=== PATIENT | female | born 2000 | race Caucasian/White ===

== ENCOUNTER 2024-10-13 15:17 | Outpatient (AMB) | payer OTHER, SELFPAY ==
--- NOTE | 2024-10-13 15:20 | MHC.PC.OV ---
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 Intake Note: patient here for a new patient visit [place] Worker Required: No Is last menstrual period known: No (depo) Post menopausal: No Patient : No Allergies amoxicillin Allergy (Intermediate, Verified 10/13/24 15:36) Rash cat dander Allergy (Intermediate, Verified 10/13/24 15:36) Itching dog dander Allergy (Intermediate, Verified 10/13/24 15:36) Rash Medication List - Last Reviewed 10/13/24 by iLdia Rios MA medroxyprogesterone 150 mg IM [id number] nitrofurantoin macrocrystal 50 mg PO DAILY Tobacco use date assessed: 10/13/24 Dental Screening Dental Screen Date: 10/13/24 Did you have a dental visit in the last 12 months?: Yes Did you have a dental problem in the last 6 months where you did not have access to dental care?: No Was dental information given to patient?: Patient has dentist HPI HPI Comments History of Present Illness Details 24 y/o F with recurrent UTI, HX of frequent concussions, migraine headaches with aura Sugery: Sandy tooth removal Social: Teacher, 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 Health Maintenance: Tdap 2019 Pap due Specialist: CONTRACTS SPECIALIST [facility] History of Present Illness - The patient is a 24-year-old female presenting to est care and for a wellness exam - Previous PCP: Huma Colon records - with concerns of recurrent headaches, sinus symptoms, and fatigue. - Headaches are frequent monthly, treated with OTC analgesics, with associated aura symptoms. - Recurrent UTIs are under ongoing daily antibiotic prophylaxis. - Associated TMJ disorder presents with facial pain. - Sinus-related symptoms include congestion and purulence, started > 1 week ago. Worse since onset. - Dizziness can occur ; feels like blood sugar drops; has to eat. - Notable fatigue with standard meals, hunger-related dizziness. - Neck mass noted, right side, size fluctuates without prior evaluations. Tender to touch Past Surgical History - Extraction of wisdom teeth (planned) Family History - Mother has a history of asthma and hypertension. - Father is alive, limited medical history known. - No known familial cancer. Social History - Employment: Works as a teacher. - Housing: Resides with her mother and feels safe. - Family: No children, has two sisters and two brothers who are healthy. - Preventive Health: Up-to-date tetanus vaccination with the last dose in 2019. - Lifestyle: Reports potential stress impact from work environment, contributing to headaches. Health Maintenance - Received tetanus vaccination in 2019. - Regular Pap smears for women's health maintenance with no history of abnormal results. - Complained about frequent dizziness and fatigue, labs were ordered to further investigate thyroid and vitamin levels. - Sinus infection to be treated with antibiotics. - Initiated preventive therapy for headaches including magnesium and vitamin B supplementation. Review of Systems - Constitutional: Reports fatigue, dizziness associated with hunger. - HEENT: Reports sinus congestion, drainage, and pressure. Denies using corrective lenses. - Eyes: Denies visual loss or use of glasses, but reports visual abnormalities preceding migraines. - Cardiovascular: Denies significant family cardiac history. - Respiratory: Denies respiratory symptoms. - Gastrointestinal: Denies significant pain, mentions burning upon swallowing. - Genitourinary: Reports recurrent UTIs. Patient reports recurrent UTIs, managed with low-dose antibiotics prescribed by urogynecology. - Musculoskeletal: Reports history of TMJ pain. - Neurological: Reports headaches, no seizures reported. Reports migraines occurring 2-3 times per month, associated with TMJ and past concussions. - Endocrine: Occasional symptoms suggestive of hypoglycemia. - Psychiatric: Denies anxiety or depression. - Skin: Noted a mole on the back that has changed and causes pain; referral to dermatology recommended. Physical Exam General: Well developed, well nourished, in no acute distress. Appears stated age. Head: Normocephalic, atraumatic. Eyes: Pupils are equal, round and reactive to light and accommodation. Conjunctivae are clear. Vision grossly normal. Ears: TMs clear R, mild erythema on L, EACS WNL. Nose: Patent, purulent discharge. Frontal and maxillary sinus tenderness bilat worse on L Neck: Supple, + thyromegaly. Painful palpable lump along posterior cervical chain Breast: Edu on SBE Lungs: Clear to auscultation bilaterally. No rales, rhonchi or wheeze noted. Good air flow in all hurtado. Heart: Regular rate and rhythm. No murmurs, click, rubs or gallops are noted. Abdomen: Bowel sounds present in all quadrants. The abdomen is soft, nontender, with no masses or organomegaly noted. No hernias are noted. : Deferred. Reviewed recommendations for routine CONTRACTS SPECIALIST. Pulses: Peripheral pulses are equal and palpable bilaterally. Extremities: No clubbing, cyanosis nor edema is noted. Neurologic: Gait and station normal. Cranial Nerves 2-12 intact. Motor strength grossly symmetrical and intact. No sensory loss. Balance normal. Skin: No rashes, ulcers, or lesions noted. Turgor is good. Skin color is good. Hair and nails are without abnormalities. Mole L upper back Psych: Normal eye contact, affect and mood appropriate, and normal interactions. Patient is alert and appropriate to context. Screening for anxiety and depression negative. Results Pending Discussion Notes I discussed the patient's various symptoms, notably her recurrent headaches and potential migraine-associated symptoms. Education regarding the administration and expected effects of sumatriptan was provided, focusing on its use during headache onset and potential side effects such as flushing and tiredness. Preventive measures for her headaches were initiated with recommendations to take magnesium and vitamin B6 nightly. Regarding her sinus symptoms, we explored the likelihood of a bacterial process and decided on antibiotic treatment. I recommended an ultrasound of the neck to assess the variable mass more conclusively. The management of recurrent UTIs continues with prophylactic antibiotics. Future follow-up and interventions will be guided by lab and ultrasound results, necessitating timely follow-up upon result receipt. Assessment and Plan 1. Recurrent Urinary Tract Infections - Maintain antibiotic prophylaxis. 2. Sinusitis - Start antibiotics; monitor symptoms. 3. Headaches/Migraine - Sumatriptan and preventive supplements. 4. TMJ Disorder - Manage with NSAIDs, heat. 5. Neck Mass/thyromegaly - Ultrasound scheduled. 6. Fatigue - Lab work ordered. Derm referral for mole. Routine labs. Patient Instructions - Take sumatriptan at first sign of headache. - Continue daily preventive vitamins. - Monitor sinus symptoms; complete the full course of antibiotics. - Stay well-hydrated and maintain regular meals; seek care if dizziness worsens. - Upon receiving an ultrasound call, attend the appointment for further neck assessment. - Expect follow-up regarding lab results and initiate contact for any worsening in the interim. - RTO 1 YEAR FOR CPE, SOONER PRN. MY OFFICE WILL ARRANGE FU FOR US RESULTS ONCE BACK Consent Patient was informed and verbally consented to the use of an ambient scribe for clinic note documentation during this visit. An additional 45 minutes was spent addressing the problem(s) noted at todays visit. This includes time spent before the visit reviewing the chart, time spent during the visit, and time spent after the visit on documentation reviewing laboratory results, diagnostic imaging, medications, performing a medically necessary evaluation, counseling on diagnoses, care coordination, ordering appropriate tests, ordering appropriate medications, review of tests performed by other providers, reporting test results with the patient, communication with other healthcare providers. PFSH Family History (Updated 10/13/24 @ 15:34 by Lidia Rios MA) Mother Asthma High blood pressure Social History (Updated 10/13/24 @ 15:29 by Lidia Rios MA) Housing: House Patient Tobacco Use Status: Never used Tobacco e-Cigarette/Vaping Use: Never Used Second Hand Smoke Exposure: No service: No Current occupational status: employed Current occupation: preK teacher Current occupational exposures/hazards: No Cognitive needs: No Hearing needs: No Vision needs: No Questionnaire PHQ-9 Over the last 2 weeks, how often have you been bothered by any of the following problems? 1. Little interest or pleasure in doing things: not at all 2. Feeling down, depressed, or hopeless: not at all 3. Trouble falling or staying asleep, or sleeping too much: not at all 4. Feeling tired or having little energy: not at all 5. Poor appetite or overeating: not at all 6. Feeling bad about yourself - or that you are a failure or have let yourself or your family down: not at all 7. Trouble concentrating on things, such as reading the newspaper or watching television: not at all 8. Moving or speaking so slowly that other people could have noticed. Or the opposite - being so fidgety or restless that you have been moving around a lot more than usual: not at all 9. Thoughts that you would be better off or of hurting yourself in some way: not at all Total score: 0 Depression Screening Interpretation: Negative Depression Screening Done: Yes 21968 - PHQ-9 Billing: Yes Source: Developed by Drs. Dominik Duvall, Kathia Rosenberg, Klaus Barnard and colleagues, with an educational kyle from [employer]. Thrive Questionnaire Date Thrive assessed: 10/13/24 I am a: Patient What is your living situation today?: I have a steady place to live Within the past 12 months, did the food you bought not last and you didn't have the money to get more?: Never true Within the past 12 months, did you worry whether your food would run out before you got money to buy more?: Never true Do you have trouble paying for medicines?: No Do you have trouble getting transportation to medical appointments?: No Do you have trouble paying your heating and electricity bill?: No Do you have trouble taking care of your child, family member or friend?: No Do you have trouble with day-to-day activities such as bathing, preparing meals, shopping, managing finances, etc.?: No Are you currently unemployed and looking for a job?: No Are you interested in more education?: Yes Please select the resources that you would like help with: None Currently or been in a relationship where the following occur: No concerns reported THRIVE Score: 0 AUDIT C Alcohol Use Questionnaire (AUDIT-C) 1. How often do you have a drink containing alcohol?: Monthly or less 2. How many drinks containing alcohol do you have on a typical day when you are drinking?: 1 or 2 3. How often do you have six or more drinks on one occasion?: Never Total Score: 1 Score Reviewed/Action Taken: Yes JUVENTINO-7 AMB Questionnaire JUVENTINO-7 Date JUVENTINO - 7 assessed: 10/13/24 Feeling nervous, anxious, or on edge: 0 = Not at all Not being able to stop or control worryin = Not at all Worrying too much about different things: 0 = Not at all Trouble relaxin = Not at all Being so restless that it is hard to sit still: 0 = Not at all Becoming easily annoyed or irritable: 0 = Not at all Feeling afraid as if something awful might happen: 0 = Not at all Total JUVENTINO-7 score (0-4 normal; 5-9 mild; 10-14 moderate; 15-21 severe): 0 Source: Developed by Drs. Dominik Duvall, Kathia Rosenberg, Klaus Barnard and colleagues, with an educational kyle from [employer]. JUVENTINO-7 Assessment Billing JUVENTINO-7 Assessment Tool: JUVENTINO-7 Assessment 31284 Physical exam (Primary Care) Vital Signs: Last Vital Signs Temp 98.3 F 10/13/24 15:29 Pulse 101 H 10/13/24 15:29 Resp 16 10/13/24 15:29 BP 125/70 10/13/24 15:29 Pulse Ox 100 10/13/24 15:29 Oxygen Delivery Method Room Air 10/13/24 15:29 BMI result Body Mass Index 28.6 Tobacco/Smoking Status: Tobacco use Status Tobacco use date assessed 10/13/24 10/13/24 15:29 Patient Tobacco Use Status Never used Tobacco 10/13/24 15:29 e-Cigarette/Vaping Use Never Used 10/13/24 15:29 PHQ-9: PHQ-9 Score PHQ-9: Total score 0 10/13/24 15:32 Depression Screening Interpretation: Negative Thrive Assessment: Date of Thrive Assessment Date Thrive assessed 10/13/24 10/13/24 15:23 Currently or been in a relationship where the following occur: No concerns reported Coding Level of Care Code New Pt Level 4 (83345) New Pt Prev Care 18-39yr(32252 Diagnoses Encounter to establish care Z76.89 Recurrent UTI N39.0 History of Papanicolaou smear of cervix Z92.89 Up to date with tetanus vaccination Z92.29 Hx of concussion Z87.820 Migraine with aura and without status migrainosus, not intractable G43.109 Status migrainosus presence: without status migrainosus Intractability: not intractable TMJ (temporomandibular joint disorder) M26.609 Atypical mole D22.9 Thyromegaly E01.0 Localized swelling, mass or lump of neck R22.1 Acute bacterial sinusitis J01.90; B96.89 Adult general medical exam Z00.00 Laboratory exam ordered as part of routine general medical examination Z00.00 Additional Codes JUVENTINO-7 Assessment Billing - JUVENTINO-7 Assessment Tool: JUVENTINO-7 Assessment 18554 ([id number]) PHQ-9 - 31562 - PHQ-9 Billing: Yes ([id number]) Assessment & Plan Assessment & Plan (1) Encounter to establish care: Code(s): Z76.89 - Persons encountering health services in other specified circumstances (2) Recurrent UTI: Comment: active w/ Urogyn Huma on preventative nitrofurantoin Code(s): N39.0 - Urinary tract infection, site not specified Category: Medical (3) History of Papanicolaou smear of cervix: Onset Date: 2022 Comment: Huma Martinez Will try to get records Code(s): Z92.89 - Personal history of other medical treatment Category: Medical (4) Up to date with tetanus vaccination: Onset Date: 2018 Code(s): Z92.29 - Personal history of other drug therapy Category: Medical (5) Hx of concussion: Code(s): Z87.820 - Personal history of traumatic brain injury Category: Medical (6) Migraine headache with aura: Code(s): G43.109 - Migraine with aura, not intractable, without status migrainosus Category: Medical Qualifiers: Status migrainosus presence: without status migrainosus Intractability: not intractable Qualified Code(s): G43.109 - Migraine with aura, not intractable, without status migrainosus (7) TMJ (temporomandibular joint disorder): Code(s): M26.609 - Unspecified temporomandibular joint disorder, unspecified side Category: Medical (8) Atypical mole: Comment: L upper back Code(s): D22.9 - Melanocytic nevi, unspecified Category: Medical (9) Thyromegaly: Code(s): E01.0 - Iodine-deficiency related diffuse (endemic) goiter Category: Medical (10) Localized swelling, mass or lump of neck: Comment: Right posterior cervical Code(s): R22.1 - Localized swelling, mass and lump, neck Category: Medical (11) Acute bacterial sinusitis: Code(s): J01.90 - Acute sinusitis, unspecified; B96.89 - Other specified bacterial agents as the cause of diseases classified elsewhere (12) Adult general medical exam: Onset Date: ~10/13/24 Code(s): Z00.00 - Encounter for general adult medical examination without abnormal findings Category: Medical (13) Laboratory exam ordered as part of routine general medical examination: Code(s): Z00.00 - Encounter for general adult medical examination without abnormal findings Category: Medical Plan . Orders: Orders Complete Blood Count no Diff Today Z00.00 - Encounter for general adult medical examination without abnormal findings TSH reflex Free T4 Today Z00.00 - Encounter for general adult medical examination without abnormal findings US thyroid Today E01.0 - Iodine-deficiency related diffuse (endemic) goiter, R22.1 - Localized swelling, mass and lump, neck Comprehensive Met. Panel Today Z. - Encounter for general adult medical examination without abnormal findings Hemoglobin A1c Today Z. - Encounter for general adult medical examination without abnormal findings IRON PROFILE Today Z. - Encounter for general adult medical examination without abnormal findings Lipid Panel Today Z. - Encounter for general adult medical examination without abnormal findings Microalbumin, Random (w Creat) Today Z. - Encounter for general adult medical examination without abnormal findings Vitamin B12 and Folate Today Z00.00 - Encounter for general adult medical examination without abnormal findings Vitamin D 25-OH Total Today Z00.00 - Encounter for general adult medical examination without abnormal findings US soft tiss head and/or neck Today E01.0 - Iodine-deficiency related diffuse (endemic) goiter, R22.1 - Localized swelling, mass and lump, neck Referrals Dermatology Referral D22.9 - Melanocytic nevi, unspecified Medications: New riboflavin (vitamin B2) 400 mg PO BEDTIME 90 tabs 2RF magnesium oxide 400 mg PO BEDTIME 90 caps 2RF sumatriptan succinate take 1 tab at onset of headache; if no relief may repeat 1 tab after at least 2 hrs; max = 4 tabs/24 hr PO 7 tabs 2RF azithromycin For 250 mg dose pack: take 500 mg today (day 1), then 250 mg for 4 days (days 2-5) PO 6 tabs 0RF 5 days Patient Instructions: Patient Instructions - Take sumatriptan at first sign of headache. - Start daily preventive vitamins. - Monitor sinus symptoms; complete the full course of antibiotics. - Stay well-hydrated and maintain regular meals; seek care if dizziness worsens. - Upon receiving an ultrasound call, attend the appointment for further neck assessment. - Expect follow-up regarding lab results and initiate contact for any worsening in the interim. Walk-In Care (Urgent Care): We Make it Easy Walk-in for urgent medical issues such as: ? Seasonal Allergies ? Insect Bites ? Cough ? Diarrhea ? Acute Asthma Attacks ? Back, Knee or Joint Pain ? Ear Infection ? Fever without a Rash ? Headaches ? Nausea ? [place], Rash or Skin Irritation ? Sore Throat ? Sports Physicals ? Vomiting Most insurances are accepted. Patients do not need to be part of the [facility] to seek care at the walk-in clinic. Locations [address] [facility] [place] [address] [phone] [facility] in [place] provides services to ages 18 and over. Open Thursday-Thursday: 8 a.m. to 5 p.m. and Thursday: 9 a.m. to 3 p.m.* *Hours may vary due to staffing availability. To confirm Walk-In Care hours in [place], please call [phone]. [address] [place] [address] ? [phone] [facility] in [place] provides services to ages 12 and over. Open Thursday-Thursday: 8 a.m. to 5 p.m. Hours may vary due to staffing availability. To confirm Walk-In Care hours in [place], please call [phone]. LABORATORY SERVICES: [facility] Lab ? Primary Location [address] [place] [address] Thursday through Thursday 6:00 AM ? 5:00 PM Thursday 7:00 AM ? 11:00 AM* [phone] The [facility] Lab is centrally located near the front entrance of the [facility] for easy outpatient access. Convenient parking is provided for outpatients. *Hours may vary due to staffing availability. To confirm Laboratory hours for any location, please call [phone]. Offsite Location For your convenience, we offer offsite laboratory draw stations at the following locations: [address] [place] [address] ? [facility] [address], [address] Thursday through Thursday 7:30 AM ? 1:00 PM* [phone] *Hours may vary due to staffing availability. To confirm Laboratory hours for any location, please call [phone]. [place] ? [address] Thursday through Thursday 6:00 AM ? 3:30 PM* Thursday 6:30 AM ? 3 PM* [phone] *Hours may vary due to staffing availability. To confirm Laboratory hours for any location, please call [phone]. [address] [facility] Thursday through Thursday 7:30 AM ? 4:00 PM* [phone] *Hours may vary due to staffing availability. To confirm Laboratory hours for any location, please call [phone]. [address] [facility] Thursday through 9:00 AM ? 4:00 PM* *Hours may vary due to staffing availability. To confirm Laboratory hours for any location, please call [phone]. Appointments are not necessary. Walk-ins are welcome. Like all the departments throughout the [facility], our Lab undergoes frequent reviews to ensure the quality and accuracy of test results, and our staff takes special pride in its status as a nationally accredited facility. Patient Portal: ONE PATIENT. ONE RECORD. BETTER CARE. [facility] has a fully integrated, cutting-edge mobile electronic health information system that has revolutionized the way we care for our patients and manage our organization. This system improves communication and coordination enabling us to provide safe, higher-quality care, and an overall positive experience for staff and patients. Our first priority, as always, is to deliver the highest quality care possible. The system is running in the background supporting that priority. This portal is for all [facility] and [facility] services and practices. If you are experiencing any technical difficulties with enrolling or logging into the Patient Portal please complete the [facility] Patient Portal Technical Support Form. [facility] and [facility] now offers a new secure on-line interactive tool for patients to review their health information ? ?Patient Portal. This interactive web portal will enable patients and their families to take an active role in their care by providing easy, secure access to their health information via the internet. The Patient Portal provides patients with instant access to their health information, including laboratory results, medications, allergies, demographic information, visit history, and more. In addition to managing their own care, parents and health care proxies with authorized consent will appreciate the ability to access the records of those individuals for whom they provide care. Please note: if you wish to gain access (Proxy) to another patient?s portal, you will be required to come to the Medical Records Department in person at [facility]. Both the patient giving proxy access and the proxy will need to provide photo identification and complete the appropriate authorization. The Patient Portal also allows track their appointments online. The [facility] Patient Portal also saves patients time by allowing them to submit updates to their demographic and contact information prior to their visits. Portal email notifications will also alert patients to any new activity on their portal, such as test results and new appointments. In order to initially enroll in the [facility] Patient Portal, you will need to enter some required information including the following: your [facility] Medical Record number your personal home email address name date of Please note: In order to enroll in the [facility] Patient Portal, we need to have your email address on file in your electronic medical record. ?The email address needs to be specific for one person (yourself) in order for your Portal enrollment to be successful. ?You can update your email address in person with our Registration staff when you are registering for a hospital visit. ?Otherwise, you will need to come to the Health Information Management (Medical Records) Department at [facility]. ?We are open from Thursday ? Thursday from 7:30 a.m. ? 4:30 p.m. ?You will be required to present a photo id. Once you have successfully enrolled in the Patient Portal, you will receive a one-time user id and password for the Portal, sent to your email address. ?This will allow you to log into the Patient Portal within 99 hrs and reset your own logon id and password, and define personal security questions. ?Once your permanent login and password have been set, you can log into the [facility] Patient Portal at any time via the blue button above or from the Portal Logon button on any page of the [facility] website. [facility] and [facility] encourage all of our patients to enroll in Patient Portal as it presents a valuable opportunity for patients and their families to actively participate in their care and stay healthy Welcome to [facility]. ?We look forward to working with you. Health screenings for women You should visit your health care provider from time to time, even if you are healthy. The purpose of these visits is to: Screen for medical issues Assess your risk for future medical problems Encourage a healthy lifestyle Update vaccinations and other preventive care services Help you get to know your provider in case of an illness Information Even if you feel fine, you should still see your provider for regular checkups. These visits can help you avoid problems in the future. For example, the only way to find out if you have high blood pressure is to have it checked regularly. High blood sugar and high cholesterol levels also may not have any symptoms in the early stages. A simple blood test can check for these conditions. There are specific times when you should see your provider or receive specific health screenings. The [place] Preventive Services Task Force publishes a list of recommended screenings. Below are screening guidelines for women ages 18 to 39. BLOOD PRESSURE SCREENING Your blood pressure should be checked at least once every 3 to 5 years if: Your blood pressure is in the normal range (top number less than 120 mm Hg and bottom number less than 80 mm Hg) You don't have risk factors for high blood pressure Ask your provider if you need your blood pressure checked more often if: The top number is 120 to 129 mm Hg or the bottom number is 70 to 79 mm Hg You have diabetes, heart disease, kidney problems, are overweight, or have certain other health conditions You have a first-degree relative with high blood pressure You are Black You had high blood pressure during a If the top number is 130 mm Hg or greater or the bottom number is 80 mm Hg or greater, this is considered stage 1 hypertension. Schedule an appointment with your provider to learn how you can reduce your blood pressure. Watch for blood pressure screenings in your area. Ask your provider if you can stop in to have your blood pressure checked. BREAST CANCER SCREENING Experts do not agree about the benefits of breast self-exams in finding breast cancer or saving lives. Talk to your provider about what is best for you. A screening mammogram is not recommended for most women under age 40. Your provider may discuss and recommend mammograms, MRI scans, or ultrasounds if you have an increased risk for breast cancer, such as: A mother or sister who had breast cancer at a young age (most often starting screening earlier than the age the close relative was diagnosed) You carry a high-risk genetic marker CERVICAL CANCER SCREENING Cervical cancer screening should start at age 21 years unless your provider advises otherwise. After the first test: Women ages 21 through 29 should have a Pap test every 3 years. Exoprts do not agree on whether HPV testing is recommended for this age group. Women ages 30 through 65 should be screened with either a Pap test every 3 years or the HPV test every 5 years or both tests every 5 years (called cotesting ). Women who have been treated for precancer (cervical dysplasia) should continue to have Pap tests for 20 years after treatment or until age 65, whichever is longer. If you have had your uterus and cervix removed (total hysterectomy), and you have not been diagnosed with cervical cancer or precancer (high grade cervical neoplasia), you do not need cervical cancer screening. CHOLESTEROL SCREENING Cholesterol screening should begin at: Age 45 for women with no known risk factors for coronary heart disease Age 20 for women with known risk factors for coronary heart disease Repeat cholesterol screening should take place: Every 5 years for women with normal cholesterol levels More often if changes occur in lifestyle (including weight gain and diet) More often if you have diabetes, heart disease, kidney problems, or certain other conditions DIABETES SCREENING You should be screened for diabetes starting at age 35 and then repeated every 3 years if you have no risk factors for diabetes. Screening may need to start earlier and be repeated more often if you have other risk factors for diabetes, such as: You have a first degree relative with diabetes. You are overweight or have obesity. You have high blood pressure, prediabetes, or a history of heart disease. Screening for diabetes should be done if you are planning to become and you are overweight and have other risk factors such as high blood pressure. DENTAL EXAM Go to the dentist once or twice every year for an exam and cleaning. Your dentist will evaluate if you need more frequent visits. EYE EXAM Have an eye exam every 5 to 10 years before age 40. If you have vision problems, have an eye exam every 2 years or more often if recommended by your provider. You should have an eye exam that includes an examination of your retina (back of your eye) at least every year if you have diabetes. IMMUNIZATIONS Commonly needed vaccines include: Flu shot: get one every year. COVID-19 vaccine: ask your provider what is best for you. Tetanus-diphtheria and acellular pertussis (Tdap) vaccine: have one at or after age 19 as one of your tetanus-diphtheria vaccines if you did not receive it as an adolescent. Tetanus-diphtheria: have a booster (or Tdap) every 10 years. Varicella vaccine: receive 2 doses if you never had chickenpox or the varicella vaccine. Hepatitis B vaccine: receive 2, 3, or 4 doses, depending on your exact circumstances. Measles, mumps, and rubella (MMR) vaccine: receive 1 to 2 doses if you are not already immune to MMR. Your provider can tell you if you are immune. Ask your provider about the human papillomavirus (HPV) vaccine if: You have not received the HPV vaccine in the past You have not completed the full vaccine series (you should catch up on this shot) Ask your provider if you should receive other immunizations if you have certain health problems that increase your risk for some diseases such as pneumonia. INFECTIOUS DISEASE SCREENING Women who are sexually active should be screened for chlamydia and gonorrhea up until age 25. Women 25 years and older should be screened for chlamydia and gonorrhea if at high risk. Screening for hepatitis C: All adults ages 18 to 79 should get a one-time test for hepatitis C. people should be screened at every . Screening for human immunodeficiency virus (HIV): All people ages 15 to 65 should get a one-time test for HIV. Depending on your lifestyle and medical history, you may also need to be screened for infections such as syphilis and HIV, as well as other infections. PHYSICAL EXAM All adults should visit their provider from time to time, even if they are healthy. The purpose of these visits is to: Screen for disease Assess your risk of future medical problems Encourage a healthy lifestyle Update your vaccinations and other preventive care services Maintain a relationship with a provider in case of an illness Your height, weight, and BMI should be checked at every exam. During your exam, your provider may ask you about: Depression and anxiety Diet and exercise Alcohol and tobacco use Safety issues, such as using seat belts, smoke detectors, and intimate partner violence Your medicines and risk for interactions SKIN SELF-EXAM Your provider may check your skin for signs of skin cancer, especially if you're at high risk, such as if you: Have had skin cancer before Have close relatives with skin cancer Have a weakened immune system OTHER SCREENING Talk with your provider about colon cancer screening if you have a strong family history of colon cancer or polyps, or if you have had inflammatory bowel disease or polyps yourself. Routine bone density screening of women under 40 is not recommended.
--- OUTSIDE RECORDS SUMMARY | 2024-10-13 15:20 | XMS_ITS | Clinical Summary ---
Author Organization [address] Building Address [address] [place] [phone] Phone Care Team Providers Care Trade Economist Name Role Phone Janelle Beavers DO Primary Care Provider [phone] Allergies Active Allergy Reactions Criticality Noted Date Comments Amoxicillin Rash High 03/04/2024 Doxycycline Rash 03/31/2015 Latex Other 03/04/2024 Unsure of reaction Medications medroxyPROGESTE Jeanmarie 150 mg/mL injection Inject 1 mL (150 mg total) into the shoulder, thigh, or buttocks. 09/09/2023 Active medroxyPROGESTE Jeanmarie 150 mg/mL injection INJECT 1 ML INTO THE MUSCLE EVERY 3 MONTHS 1 mL 1 09/19/2024 Active nitrofurantoin (MACRODANTIN) 50 mg capsuleIndicati ons:prevention of bacterial urinary tract infection Take 1 capsule (50 mg total) by mouth 1 (one) time each day. 30 capsule 5 04/14/2024 10/12/19 25 Hospital, Clinic, or Other Facility Administered Medication Ordered Dose Route Frequency Start Date End Date Status medroxyPROGESTERone (DEPO-PROVERA) injection 150 mgIndications:Surveillance for Depo-Provera contraception 150 mg IM Once 09/20/2024 09/20/2024 Ended Active Problems No known active problems Encounters Date Type Department Care Team Description 09/20/2024 10:00 AM EDT Clinical Support Obstetrics and Gynecology [address] [id number] Encounter for management and injection of depo-Provera (Primary Dx); Surveillance for Depo-Provera contraception from Last 3 Months Surgical History Surgery Date Site/Laterality Comments ESOPHAGOGASTRODUODENOSCOPY 08/09/2020 PROCEDURE: [place] EGD TRANSORAL BIOPSY SINGLE/MULTIPLE; COMMENT: Minimal erythema of the antrum, biopsies: No Helicobacter pylori infection. Medical History Medical History Date Comments Concussion 11/2014 DX:Concussion; C OMMENT: mild Migraine DX:Migraine Family History Medical History Relation Name Comments Breast cancer Neg Hx Colon cancer Neg Hx Ovarian cancer Neg Hx Prostate cancer Neg Hx Uterine cancer Neg Hx Relation Name Status Comments Brother 1 Alive healthy Brother 2 Alive healthy Father Alive healthy; occ co ntact Maternal Grandfather Maternal Grandmother Mother Alive healthy Paternal Grandfather Alive Paternal Grandmother Alive Sister 1 Alive healthy Sister 2 Alive healthy Social History Tobacco Use Types Packs/Day Years Used Date Smoking Tobacco: Never Smokeless Tobacco: Never Tobacco Cessation:Counseling Given: Not Answered Alcohol Use Standard Drinks/Week Comments Yes 0 (1 standard drink = 0.6 oz pur e alcohol) Comments No Sex and Gender Information Value Date Recorded Sex Assigned at Not on file Legal Sex Female 8:12 AM EST Gender Identity Not on file Sexual Orientation Not on file Obstetrics History Para Term AB IAB SAB Ectopic Multiple Livin g Live Births 0 0 0 0 0 0 0 0 0 0 0 Last Filed Vital Signs Vital Sign Reading Time Taken Comments Blood Pressure 144/82 09/20/2024 10:10 AM EDT Pulse 93 09/20/2024 10:10 AM EDT Temperature - - Respiratory Rate 15 09/20/2024 10:10 AM EDT Oxygen Saturation - - Inhaled Oxygen Concentration - - Weight 68 kg (150 lb) 09/20/2024 10:10 AM EDT Height 155 cm (5' 1.02 ) 06/21/2024 10:18 AM EDT Body Mass Index 28.32 06/21/2024 10:18 AM EDT Plan of Treatment Health Maintenance Due Date Last Done Comments HIV Screening 02/23/2022 Hepatitis C Screening 02/23/2022 Social Influencers of Health Screening 02/23/2022 COVID-19 Vaccine ( season) 2023 07/31/2020, 07/07/2020 Depression Screening 03/23/2024 Influenza Vaccine (#1) 2024 12/11/2009, 2006 Cervical Cancer Screening: Pap Smear 09/08/2026 09/09/2023, 10/16/2020 DTaP,Tdap,and Td Vaccines (9 - Td or Tdap) 03/15/2029 03/15/2019, 03/15/2019, 07/21/2011, Additional history exists Hepatitis B Vaccines Completed 1999, 1999, 1999 HIB Vaccines Completed 01/15/2001, 12/22, 1999, Additional history exists Pneumococcal Vaccine: Pediatrics (0 to 5 Years) and At-Risk Patients (6 to 49 Years) Aged Out 01/15/2001 No longer eligible based on patient's age to complete this topic IPV Vaccines Completed 10/31/2004, 12/22, 1999, Additional history exists MMR Vaccines Completed 10/31/2004, 04/06/2000 Varicella Vaccines Completed 07/21/2011, 04/06/2000 HPV Vaccines Completed 06/06/2014, 08/2012, 07/19/2012 Meningococcal ACWY Vaccine Completed 06/25/2015, Gonorrhea/Chlamydia Screening Discontinued 04/14/2024 Hepatitis A Vaccines Aged Out No long er eligible based on patient's age to complete this topic Meningococcal B Vaccine Aged Out No l onger eligible based on patient's age to complete this topic RSV Immunization Patients Under 20 months Aged Out No longer eligible based on patient's age to complete this topic Procedures Procedure Name Priority Date/Time Associated Diagnosis Comments POC , URINE DIAGNOSTIC Routine 09/20/2024 10:13 AM EDT Encounter for management and injection of depo-Provera CHLAMYDIA TRACHOMATIS AND NEISSERIA GONORRHOEAE PCR Routine 04/14/2024 12:48 PM EST Dysuria PAP SMEAR Routine 09/09/2023 from Last 3 Months or Most Recently Relevant to Health Maintenance Results * POC , urine manually resulted (09/20/2024 10:13 AM EDT) HCG, Ur POC Negative Negative POC hCG Int QC Pass? Yes Yes Urine Urine specimen obtained by clean catch procedure / Unknown 09/20/2024 10:13 AM EDT Nancy Arciniega CNM POINT OF CARE TEST ENTER/EDIT ORDERABLES Final Result * Chlamydia trachomatis and Neisseria gonorrhoeae molecular study (04/14/2024 12:48 PM EST) Neisseria gonorrhoeae PCR Negative Negative LAB MOLECULAR DIAGNOSTICS METHOD 04/15/2024 9:[address] [facility] Chlamydia trachomatis PCR Negative Negative LAB MOLECULAR DIAGNOSTICS METHOD 04/15/2024 9:[address] [facility] Swab Vaginal structure / Unknown Non-blood Collection / Unknown 04/14/2024 12:48 PM EST 04/14/2024 12:48 PM EST us Beatriz Rodriguez MD LAB MICROBIOLOGY - [facility] RODRIGO JOHNS Final Result [facility] [address] [place] [address], [place] [phone] * Pap smear (09/09/2023) 09/09/2023 Narrative HISTORICAL TESTING LAB RESULTING AGENCY - 09/22/2023 3:26 PM EDT [id number] THINPREP PAP, IMAGED: ATYPICAL SQUAMOUS CELLS OF UNDETERMINED SIGNIFICANCE (ASCUS) . IGOR PRECIADO M.D. , PATHOLOGIST (CASE ELECTRONICALLY SIGNED 09 17 2023) RESULT OF APTIMA HIGH RISK HPV ASSAY: HIGH RISK HPV: NEGATIVE (SEROTYPES 16,18,31,33,35,39,45,51,52,56,58,59,66,68) COMPLETED ON 2023-09-22 ADEQUACY: SATISFACTORY ENDOCERVICAL/TRANSFORMATION ZONE COMPONENT PRESENT. SOURCE: THINPREP PAP HPV IF ASCUS, CERVICAL, IMAGED CLINICAL INFORMATION: HPV IF DIAGNOSIS OF ASCUS. HORMONES, PAP HX NEGATIVE, [[id number]] Paul Wooten CN LAB CYTOLOGY ORDERABLES Final Result HISTORICAL TESTING LAB RESULTING AGENCY from Last 3 Months or Most Recently Relevant to Health Maintenance Insurance [facility] Care Teams Trade Economist Relationship Specialty Start Date End Date Janelle Beavers DO [address] [place] [address] PCP - General Internal Medicine 07/18/21
--- OUTSIDE RECORDS SUMMARY | 2024-10-13 15:20 | XMS_ITS ---
Author Name [facility] Organization Unknown Care Team Organization Name Specialty Phone Email Start Date End Da te [facility] Molina Paul Primary Care 01/28/2022
[2024-10-13 15:29] VITALS: BP 125/70; PULSE 101; RESP 16; TEMP 36.8; O2SAT 100; BMI 28.6
[2024-10-13 16:25] VITALS: PULSE 90
== END 2024-10-13 16:18 | disposition home or self-care (01) ==
LOC: HO.HMCFM 15:18
PROVIDERS: PCP Nurse Practitioner Family; Visit Provider Nurse Practitioner Family
DX: Z00.00 Encounter for general adult medical examination without abnormal findings (principal); N39.0 Urinary tract infection, site not specified; M26.609 Unspecified temporomandibular joint disorder, unspecified side; D22.9 Melanocytic nevi, unspecified; G43.109 Migraine with aura, not intractable, without status migrainosus; Z92.89 Personal history of other medical treatment; Z92.29 Personal history of other drug therapy; Z87.820 Personal history of traumatic brain injury; E01.0 Iodine-deficiency related diffuse (endemic) goiter; R22.1 Localized swelling, mass and lump, neck; J01.90 Acute sinusitis, unspecified; B96.89 Other specified bacterial agents as the cause of diseases classified elsewhere

== ENCOUNTER 2024-10-13 15:57 | Outpatient (REF) | payer OTHER, SELFPAY ==
[2024-10-13 17:46] LABS: Hemoglobin A1C 110.5245 umol/L; Total Hemoglobin (HGBA1C) 3297.5175 umol/L
[2024-10-13 17:56] LABS: Hematocrit 37.5 % (37.0-47.0); Hemoglobin 12.6 g/dl (12.0-16.0); Mean Corpuscular HGB Conc 33.6 g/dl (31.0-35.0); Mean Corpuscular Hemoglobin 29.2 pg (27.0-33.0); Mean Corpuscular Volume 86.8 fL (80.0-98.0); NRBC Abs Auto 0.000 X10*3/uL (0.0-0.012); NRBC Pct Auto 0.0 /100WBC (0.0-0.2); Platelet Count 376 X10*3/uL (160-400); Red Blood Count 4.32 X10*6/uL (4.20-5.50); White Blood Count 6.7 X10*3/uL (4.8-10.8)
[2024-10-13 17:59] LABS: Alanine Aminotransferase 30 U/L (0-31); Albumin Level 4.6 g/dL (3.5-5.0); Alkaline Phosphatase 95 U/L (39-117); Anion Gap 8 (12-20); Aspartate Amino Transferase 25 U/L (5-31); Blood Urea Nitrogen 9 mg/dL (9-16); Calcium 9.1 mg/dL (8.4-10.2); Carbon Dioxide 24 mmol/L (22-29); Chloride 111 mmol/L (96-108); Cholesterol 144 mg/dL (<200); Estimated Glomerular Filt Rate > 60; HDL Cholesterol 31 mg/dL (>40); Iron 67 mcg/dL (30-160); Percent Iron Saturation 22 % (15-50); Potassium 3.7 mmol/L (3.3-5.1); Sodium 139 mmol/L (135-145); Total Iron Binding Capacity 306 mcg/dL (228-428); Total Protein 7.2 g/dL (6.5-8.0); Triglycerides 100 mg/dL (<150); Unsaturated Iron Binding 239 ug/dL
[2024-10-13 18:38] LABS: Folate 7.8 ng/mL (> or = 4.0); Vitamin B12 309 pg/mL (200-900)
== END 2024-10-13 15:58 | disposition home or self-care (01) ==
LOC: HO.WFDLDS 15:57
PROVIDERS: Visit Provider Nurse Practitioner Family
DX: Z00.00 Encounter for general adult medical examination without abnormal findings (principal); Z76.89 Persons encountering health services in other specified circumstances; N39.0 Urinary tract infection, site not specified; G43.109 Migraine with aura, not intractable, without status migrainosus; M26.609 Unspecified temporomandibular joint disorder, unspecified side; D22.5 Melanocytic nevi of trunk; E01.0 Iodine-deficiency related diffuse (endemic) goiter; R22.1 Localized swelling, mass and lump, neck; J01.90 Acute sinusitis, unspecified; B96.89 Other specified bacterial agents as the cause of diseases classified elsewhere; Z87.820 Personal history of traumatic brain injury; Z92.89 Personal history of other medical treatment; Z92.29 Personal history of other drug therapy; Z13.31 Encounter for screening for depression; Z13.39 Encounter for screening examination for other mental health and behavioral disorders
CPT/HCPCS: 36415; 80053; 80061; 82306; 82570; 82607; 82746; 83036; 83540; 84443; 85027; 96127; 99202; 99385

== ENCOUNTER 2025-01-04 14:19 | Outpatient (REF) | payer OTHER, SELFPAY ==
--- OUTSIDE RECORDS SUMMARY | 2025-01-03 16:00 | XMS_ITS | Encounter Summary ---
Author Organization Address [address] [place] [address] Care Team Providers Care Solidworks Drafter Name Role Phone Janelle Beavers DO Primary Care Provider [phone] Reason for Visit * Reason Comments depo provera Encounter Details Date Type Department Care Team (Latest Contact Info) Description 01/03/2025 4:00 PM EDT Clinical Support Obstetrics and Gynecology - [address] [phone] Surveillance for Depo-Provera contraception (Primary Dx) Social History Tobacco Use Types Packs/Day Years Used Date Smoking Tobacco: Never Smokeless Tobacco: Never Alcohol Use Standard Drinks/Week Comments Yes 0 (1 standard drink = 0.6 oz pur e alcohol) Comments No Sex and Gender Information Value Date Recorded Sex Assigned at Not on file Legal Sex Female 8:12 AM EST Gender Identity Not on file Sexual Orientation Not on file documented as of this encounter Last Filed Vital Signs Vital Sign Reading Time Taken Comments Blood Pressure 113/79 01/03/2025 4:07 PM EDT Pulse 97 01/03/2025 4:07 PM EDT Temperature - - Respiratory Rate - - Oxygen Saturation - - Inhaled Oxygen Concentration - - Weight 69.9 kg (154 lb 3.2 oz) 01/03/2025 4:07 P M EDT Height 162.6 cm (5' 4 ) 01/03/2025 4:07 PM EDT Body Mass Index 26.47 01/03/2025 4:07 PM EDT documented in this encounter Progress Notes * Bhargavi Snowden MA - 01/03/2025 4:00 PM EDT Pt came in for depo HCG RESULT: negative Depo-Provera administered. Medication is: Patient supplied given in right arm No problems noted Signs and symptoms of adverse reactions discussed. Patient instructed to call back with any concerns. Patient instructed when to return for next visit. Pt to call office, has rotating work schedule. documented in this encounter Plan of Treatment Not on file documented as of this encounter Procedures Procedure Name Priority Date/Time Associated Diagnosis Comments POC , URINE DIAGNOSTIC Routine 01/03/2025 4:10 PM EDT Surveillance for Depo-Provera contraception documented in this encounter Results * POC , urine manually resulted (01/03/2025 4:10 PM EDT) HCG, Ur POC Negative Negative POC hCG Int QC Pass? Yes Yes Urine Urine specimen obtained by clean catch procedure / Unknown 01/03/2025 4:10 PM EDT Yudi NI POINT OF CARE TEST ENTER/ED IT ORDERABLES Final Result documented in this encounter Visit Diagnoses Diagnosis Surveillance for Depo-Provera contraception- Primary Surveillance of other previously prescribed contraceptive method documented in this encounter Administered Medications Inactive Administered Medications - up to 3 most recent administrations Medication Order MAR Action Action Date Dose Rate Site medroxyPROGESTERone (DEPO-PROVERA) injection 150 mg 150 mg, intramuscular, Once, On Thu01/03/25 at 1630, For 1 dose, SHAKE WELL Hazardous Medication - Double pair of ASTM standard D6978 certified gloves - Eye/face protection if liquid that could splash - Staff at reproductive risk must also wear a hazardous gownIndications:Surveillance for Depo-Provera contraception Given 01/03/2025 4:08 PM EDT 150 mg Other documented in this encounter Discontinued Medications Medication Sig Discontinue Reason Start Date End Da te medroxyPROGESTERone 150 mg/mL injection Inject 1 mL (150 mg total) into the shoulder, thigh, or buttocks. Duplicate order 09/09/2023 01/03/2025 medroxyPROGESTERone 150 mg/mL injection INJECT 1 ML INTO THE MUSCLE EVERY 3 MONTHS Duplicate order 09/19/2024 01/03/2025 documented as of this encounter Orders Medications Ordered That Reagan ht Not Have Been Administered Count Last Ordered Date First Ordered Date medroxyPROGESTERone (DEPO-WY OVERA) injection 150 mg 1 01/03/2025 documented in this encounter Care Teams Solidworks Drafter Relationship Specialty Start Date End Date Janelle Beavers DO [address] [place] [address] PCP - General Internal Medicine 07/18/21 documented as of this encounter
--- NOTE | ~2025-01-04 | US_ITS ---
EXAMINATION: US THYROID HISTORY: Iodine-deficiency goiter, thyromegaly, lump right lat/post neck TECHNIQUE: Real-time grayscale ultrasound imaging was performed and images were reviewed. COMPARISON: There are no prior studies available for comparison. FINDINGS: SIZE: The right thyroid lobe measures 5.8 x 1.7 x 1.8 cm. The left thyroid lobe measures 5.2 x 1.8 x 1.3 cm. The isthmus measures 4 mm. FLOW: Flow to the gland is normal. ECHOGENICITY: The echotexture of the gland is homogeneous. NODULES: Right-sided nodules are identified with imaging characteristics as follows: Nodule #: 1 Location: Upper pole of the right thyroid lobe measuring 14 x 10 x 12 mm. Shape: Wider than tall (0 points) Margins: Smooth (0 points) Echotexture: Very hypoechoic (3 points) Composition: Solid (2 points) Calcifications: None (0 points) Total points: 5 TIRADS: TR4: Moderately suspicious. Nodule #: 2 Location: Lower pole of the right thyroid lobe measuring 17 x 13 x 12 mm. Shape: Taller than wide (3 points) Margins: Smooth (0 points) Echotexture: Hypoechoic (2 points) Composition: Solid (2 points) Calcifications: None (0 points) Total points: 7 TIRADS: TR5: Highly suspicious. Incidental note is made of a 1.0 x 0.5 x 1.1 cm normal-appearing superficial lymph node on the right, corresponding to a palpable abnormality. US/US thyroid IMPRESSION: Right-sided thyroid nodules as described. The larger nodule at the lower aspect of the right thyroid lobe (nodule #2 above) meets ACR TI-RADS criteria for ultrasound-guided fine-needle aspiration. ACR TI-RADS Guidelines TR1 (0 points): Benign. No follow-up or biopsy required TR2 (2 points): Not Suspicious. No biopsy or follow up indicated TR3 (3 points): Mildly Suspicious. FNA if >= 2.5 cm, Follow if >= 1.5 cm TR4 (4-6 points): Moderately Suspicious. FNA if >= 1.5 cm, Follow if >= 1.0 cm TR5 (>=7 points): Highly Suspicious. FNA if >= 1.0 cm, Follow if >= 0.5 cm Electronically signed by: Dominik Titus MD 01/04/2025 03:28 PM EDT
--- OUTSIDE RECORDS SUMMARY | 2025-01-04 18:04 | XMS_ITS | Clinical Summary ---
[facility] Address [address] [place] [phone] Phone Care Team Providers Care Assignment Desk Editor Name Role Phone Janelle Beavers DO Primary Care Provider [phone] Allergies Active Allergy Reactions Criticality Noted Date Comments Amoxicillin Rash High 03/04/2024 Doxycycline Rash 03/31/2015 Latex Other 03/04/2024 Unsure of reaction Medications medroxyPROGESTE Jeanmarie 150 mg/mL injection Inject 1 mL (150 mg total) into the shoulder, thigh, or buttocks. 4 01/04/20 25 Discontinu ed(Duplica te order) medroxyPROGESTE Jeanmarie 150 mg/mL injection INJECT 1 ML INTO THE MUSCLE EVERY 3 MONTHS 1 mL 1 5 01/04/20 25 Discontinu ed(Duplica te order) Hospital, Clinic, or Other Facility Administered Medication Ordered Dose Route Frequency Start Date End Date Status medroxyPROGESTERone (DEPO-PROVERA) injection 150 mgIndications:Surveillance for Depo-Provera contraception 150 mg IM Once 01/03/2025 01/03/2025 Ended Active Problems No known active problems Encounters Date Type Department Care Team Description 01/03/2025 4:00 PM EDT Clinical Support Obstetrics and Gynecology - [address] [phone] Surveillance for Depo-Provera contraception (Primary Dx) 12/28/2024 Telephone Obstetrics and Gynecology - [address] [phone] [place] CNM from Last 3 Months Surgical History Surgery Date Site/Laterality Comments ESOPHAGOGASTRODUODENOSCOPY 08/09/2020 PROCEDURE: WI EGD TRANSORAL BIOPSY SINGLE/MULTIPLE; COMMENT: Minimal erythema [...] PM EDT Temperature - - Respiratory Rate 15 09/20/2024 10:10 AM EDT Oxygen Saturation - - Inhaled Oxygen Concentration - - Weight 69.9 kg (154 lb 3.2 oz) 01/03/2025 4:07 P M EDT Height 162.6 cm (5' 4 ) 01/03/2025 4:07 PM EDT Body Mass Index 26.47 01/03/2025 4:07 PM EDT Plan of Treatment Health Maintenance Due Date Last Done Comments HIV Screening 02/23/2022 Hepatitis C Screening 02/23/2022 Social Influencers of Health Screening 02/23/2022 Depression Screening 03/23/2024 COVID-19 Vaccine ( season) 2024 07/31/2020, 07/07/2020 Influenza Vaccine (#1) 2024 12/11/2009, 2006 Cervical Cancer Screening: Pap Smear 09/08/2026 09/09/2023, 10/16/2020 DTaP,Tdap,and Td Vaccines (9 - Td or Tdap) 03/15/2029 03/15/2019, 03/15/2019, 07/21/2011, Additional history exists RSV Immunization Adult Patients (1 - 1-dose 75+ series) 2074 Hepatitis B Vaccines Completed 1999, 1999, 1999 [...] Completed 07/21/2011, 04/06/2000 HPV Vaccines Completed 06/06/2014, 090 08/2012, 07/19/2012 Meningococcal ACWY Vaccine Completed 06/25/2015, [...] 4:10 PM EDT Surveillance for Depo-Provera contraception CHLAMYDIA TRACHOMATIS AND NEISSERIA GONORRHOEAE PCR Routine [...] / Unknown 01/03/2025 4:10 PM EDT Yudi Lewis CNM POINT OF CARE TEST ENTER/ED IT ORDERABLES Final Result * Chlamydia trachomatis and Neisseria gonorrhoeae molecular study (04/14/2024 12:48 PM EST) Neisseria gonorrhoeae PCR Negative Negative LAB MOLECULAR DIAGNOSTICS METHOD 04/15/2024 9:12 AM EST [facility] Chlamydia trachomatis PCR Negative Negative LAB MOLECULAR DIAGNOSTICS METHOD 04/15/2024 9:12 AM EST [facility] Swab Vaginal structure / Unknown Non-blood Collection / Unknown 04/14/2024 12:48 PM EST 04/14/2024 12:48 PM EST Beatriz Rodriguez MD LAB MICROBIOLOGY - GENERAL RODRIGO JOHNS Final Result [facility] [address] [place] [address], * Pap smear (09/09/2023) 09/09/2023 Narrative HISTORICAL TESTING LAB RESULTING AGENCY - 09/22/2023 3:26 PM EDT [id number] THINPREP PAP, IMAGED: ATYPICAL SQUAMOUS CELLS OF [...] OF ASCUS. HORMONES, PAP HX NEGATIVE, [[id number]] us Paul Je CN LAB CYTOLOGY ORDERABLES Final Result HISTORICAL TESTING LAB RESULTING AGENCY from Last 3 Months or Most Recently Relevant to Health Maintenance Insurance [facility] Care Teams Assignment Desk Editor Relationship Specialty Start Date End Date Janelle Beavers DO [address] [place] [address] PCP - General Internal Medicine 07/18/21
--- OUTSIDE RECORDS SUMMARY | 2025-01-04 18:04 | XMS_ITS | Clinical Summary ---
Author Organization [facility] Address [address] [place] [phone] Phone Care Team Providers Care Wrinkle Chaser Name Role Phone Deann Atkinson NP Primary Care Provider Allergies Active Allergy Reactions Criticality Noted Date Comments Amoxicillin Rash Low 04/12/2023 Azithromycin GI Upset 12/12/2024 Dog Dander Sneezing Low 05/13/2024 Hives, throat starts to close, sneezing running eyes CATS TOO Anything with fur. Doxycycline Rash Low 03/31/2015 Latex 04/12/2023 Other Reaction(s): Other Unsure of reaction Medications medroxyPROGEST ERone (DEPO-PROVERA) 150 mg/mL injection INJECT 1ML INTO THE MUSCLE EVERY 3 MONTHS 07/11/19 22 Active nitrofurantoin (MACRODANTIN) 50 MG capsule Take 1 capsule by mouth every morning. 05/26/19 25 Active phenazopyridin e (PYRIDIUM) 100 MG tablet Take 2 tablets (200 mg total) by mouth 3 (three) times a day as needed for pain (specific location in comments) (URINARY DISCOMFORT). 12 tablet 06/17/19 25 Active Additional Information Patient not taking.Reported on 10/10/2024 acetaminophen (TYLENOL) 500 MG tablet take 1 tablet by mouth every 4-6 hours as needed 09/10/19 25 Active cyclobenzaprin e (FLEXERIL) 5 MG tablet Take 5 mg by mouth nightly at bedtime. 09/10/19 25 Active IBU 600 mg tablet take one tablet by mouth every 6 to 8 hours as needed 09/10/19 25 Active cefpodoxime (VANTIN) 200 MG tablet Take 1 tablet by mouth 2 (two) times a day. 12/09/19 25 Active fluconazole (DIFLUCAN) 150 MG tablet TAKE 1 TABLET BY MOUTH TODAY MAY REPEAT IN 72 HOURS IF STILL SYMPTOMATIC 12/12/19 25 Active albuterol (PROAIR HFA) 90 mcg/actuation inhaler Inhale 2 puffs into the lungs every 4 (four) hours as needed for wheezing. 18 g 12/13/19 25 Active inhaler spacing device (AEROCHAMBER,B REATHERITE) Spcr Inhale 1 each into the lungs every 4 (four) hours as needed (with inhaler). 1 each 12/13/19 25 Active dexAMETHasone (DECADRON) 2 MG tablet TAKE FIVE TABLETS BY MOUTH EVERY DAY X 1 DOSE 01/12/20 24 025 Discontinued predniSONE (DELTASONE) 20 MG tablet Take 3 tablets (60 mg total) by mouth daily for 5 days. 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 Overview (10/28/2023): Clinical diagnosis - formal testing not done Common migraine 10/28/2023 Encounters Date Type Department Care Team Description 12/12/2024 6:37 PM EDT - 12/12/2024 11:59 PM EDT Hospital Encounter [facility] [address] [place] [address] Melvi Reyes FNP Discharge Disposition: Home or Self Care 12/12/2024 6:10 PM EDT Office Visit [facility] at [address] [address] Melvi Reyes FNP Acute upper respiratory infection (Primary Dx) 10/10/2024 9:20 AM EDT Office Visit [facility] at [address] [address] Margo Saldivar NP Acute upper respiratory infection (Primary Dx) from Last 3 Months Immunizations Immunization Administration Dates Next Due DTaP 03/15/2019, 5,01/15/2001,09/15,1999,1999 [id number] 01/15/2001,1999 HPV,quadrivalent 06/06/2014,11/26/2012, 3 Hepatitis B 1999,1999,1999 Hib,HbOC 01/15/2001, 0,1999,05/14 INFLUENZA, SPLIT VIRUS, TRIV ALENT W/ PRESERVATIVE IM 12/11/2009,03/06/2007 IPV 10/31/2004, 0,1999,05/14 MMR 10/31/2004,04/06/2000 Meningococcal MCV4P 06/25/2015,07/21/2011 Pneumococcal conjugate, PCV 7 01/15/2001 Tdap 03/15/2019,07/21/2011 Varicella 07/21/2011,04/06/2000 Social History Tobacco Use Types Packs/Day Years Used Date Smoking Tobacco: Never Smokeless Tobacco: Never Tobacco Cessation:Counseling Given: Not Answered Education Answer Date Recorded Are you interested in more education? Not on giovana e 07/19/2022 Are you concerned about learning? Not on file 07/19/2022 No 07/19/2022 No 07/19/2022 Digital Access Answer Date Recorded No 08/17/2022 No 08/17/2022 Reliable internet access at home? Not on file 08/17/2022 Device with a working camera? Not on file Comments Unknown Sex and Gender Information Value Date Recorded Sex Assigned at Not on file Legal Sex Female 5:45 PM EDT Gender Identity Not on file Sexual Orientation Not on file Last Filed Vital Signs Vital Sign Reading Time Taken Comments Blood Pressure 116/77 12/12/2024 6:22 PM EDT Pulse 114 12/12/2024 6:22 PM EDT Temperature 37.1 C (98.8 F) 12/12/2024 6:22 PM EDT Respiratory Rate 16 12/12/2024 6:22 PM EDT Oxygen Saturation 98% 12/12/2024 6:22 PM EDT Inhaled Oxygen Concentration - - Weight 61.2 kg (135 lb) 01/02/2024 9:43 AM EDT Height 160 cm (5' 3 ) 01/02/2024 9:43 AM EDT Body Mass Index 23.91 01/02/2024 9:43 AM EDT Plan of Treatment Health Maintenance Due Date Last Done Comments DEPRESSION SCREENING 2011 HEPATITIS C SCREENING 2017 HIV ONE-TIME SCREENING (18-65 YEARS) 2017 INFLUENZA VACCINE (#1) 2024 12/11/2009, 2006 COVID-19 VACCINE ( season) 2024 07/31/2020, 07/07/2020 SMOKING Hx and SMOKELESS TOBACCO SCREENING 12/12/2025 12/12/2024 PAP SMEAR 09/08/2026 09/09/2023 Adult Td,Tdap Booster 03/15/2029 03/15/2019, 012 HIB VACCINES Completed 01/15/2001, 12/22, 1999, Additional history exists PNEUMOCOCCAL VACCINES (0-49 years) Aged Out 01/15/2001 No longer eligible based on patient's age to complete this topic HPV VACCINES Completed 06/06/2014, 08/2012, 07/19/2012 MENINGOCOCCAL VACCINES (ACWY) Completed 06/25/2015, 07/21/2011 HEPATITIS A VACCINES Aged Out No long er eligible based on patient's age to complete this topic MENINGOCOCCAL VACCINES (B) Aged Out N o longer eligible based on patient's age to complete this topic Medical Devices Not on file Procedures Procedure Name Priority Date/Time Associated Diagnosis Comments XR CHEST PA AND LATERAL 2 VIEWS Urgent/patient waiting 12/12/2024 6:43 PM EDT Acute upper respiratory infection POCT COVID-19 RT-PCR/INFLUENZA A & B/RSV CEPHEID Routine 12/12/2024 6:24 PM EDT POCT RAPID STREP A Routine 10/10/2024 9:34 AM EDT POCT COVID-19 RT-PCR/INFLUENZA A & B/RSV CEPHEID Routine 10/10/2024 9:33 AM EDT from Last 3 Months Results * XR CHEST PA AND LATERAL 2 VIEWS (12/12/2024 6:43 PM EDT) Anatomical Region Laterality Modality Chest Computed Radiogr aphy 12/12/2024 7:14 PM EDT Impressions 12/12/2024 7:15 PM EDT Normal chest. Narrative 12/12/2024 7:15 PM EDT XR CHEST PA AND LATERAL 2 VIEWS Referring clinician's provided indication for this examination in [facility]: Cough; strep 5 days ago, now fever, cough and chest tightness. productive green COMPARISON: None FINDINGS: Devices/Tubes/Lines: None. Lungs: Normal. The lungs are clear. No focal consolidation or pulmonary edema. Pleura: Normal. No pleural effusion or pneumothorax. Heart/Mediastinum: Normal heart and mediastinum. Bones/Soft Tissues: Normal. No significant skeletal abnormality. Procedure Note Joe Pickens MD, MPH - 12/12/2024 XR CHEST PA AND LATERAL 2 VIEWS Referring clinician's provided indication for this examination in [facility]:Cough; strep 5 days ago, now fever, cough and chest tightness. productivegreen COMPARISON: None FINDINGS: Devices/Tubes/Lines: None. Lungs: Normal. The lungs are clear. No focal consolidation or pulmonaryedema. Pleura: Normal. No pleural effusion or pneumothorax. Heart/Mediastinum: Normal heart and mediastinum. Bones/Soft Tissues: Normal. No significant skeletal abnormality. IMPRESSION: Normal chest. Melvi Reyes CASE WORK AIDE IMG XR CHEST Final Resul t * POCT COVID-19 RT-PCR/Influenza A & B/RSV (Cepheid) (12/12/2024 6:24 PM EDT) Only the most recent of2 resultswithin the time period is included. [facility] Signature RSV PCR Negative Negative [facility] SARS-CoV-2 (COVID-19) Negative Negative [facility] Influenza A PCR Negative Negative [facility] Influenza B PCR Negative Negative [facility] 12/12/2024 6:24 PM EDT 12/12/2024 7:05 PM EDT us Melvi Reyes CASE WORK AIDE POINT OF CARE TEST ORDERABL ES Final Result [facility] [address] [address], [facility] [phone] * POCT Rapid Strep A (10/10/2024 9:34 AM EDT) [facility] Strep A, PCR Not Detected Not Detected C [facility] 10/10/2024 9:34 AM EDT 10/10/2024 10:01 AM EDT Margo Saldivar SULPHATE TESTER POINT OF CARE TEST ORDERAB LES Final Result [facility] AT [address] [address], [facility] [phone] from Last 3 Months Insurance [address] [place] [address] [facility] DIRECT [employer] DIRECT [employer] [place] [address] [address] [place] [place] [address] [place] [address] PLANS [employer] DIRECT Care Teams Wrinkle Chaser Relationship Specialty Start Date End Date Deann Atkinson NP [address] [place] [address] [place] [address] [email or web address] PCP - General Nurse Practitioner 12/12/24 Additional Source Comments The information contained in this document represents components of the legal health record. It is not the complete legal health record.[facility]
--- OUTSIDE RECORDS SUMMARY | 2025-01-04 18:04 | XMS_ITS | Encounter Summary ---
Author Organization [facility] Address [address] [place] [address] Care Team Providers Care Customer Services Coordinator Name Role Phone Janelle Beavers DO Primary Care Provider [phone] Reason for Visit * Reason Onset Date Comments DEPO 12/28/2024 Encounter Details Date Type Department Care Team ([facility] Contact Info) Description 12/28/2024 Telephone Obstetrics and Gynecology - [address] [phone] [place] CNM [address] [place] [id number] Social History Tobacco Use Types Packs/Day Years [...] on file documented as of this encounter Progress Notes * Dolly Vaughn RN - 01/02/2025 11:21 AM EDT Scheduled pt for depo-2 weeks late-will need preg test. * Melissa Villavicencio - 12/28/2024 1:08 PM EDT Pt calling, had her last depo inj on 09/20/24, was due for it the last week of November, but failed to come in. Pt states in the past they put in an urine order for hcg and then schedule depo inj. Pls documented in this encounter Plan of Treatment Not on file documented as of this encounter Visit Diagnoses Not on filedocumented in this encounter Care Teams Customer Services Coordinator Relationship Specialty Start Date End Date Janelle Beavers DO [address] [place] [address] PCP - General Internal Medicine 07/18/21 documented as of this encounter
== END 2025-01-04 14:20 | disposition home or self-care (01) ==
LOC: HO.US 14:19
PROVIDERS: PCP Nurse Practitioner Family; Visit Provider Nurse Practitioner Family
DX: E01.0 Iodine-deficiency related diffuse (endemic) goiter (principal); R22.1 Localized swelling, mass and lump, neck
CPT/HCPCS: 76536

== ENCOUNTER → 2025-01-04 14:29 | Outpatient (BNV) | payer OTHER, SELFPAY | PROVIDERS: PCP Nurse Practitioner Family; Visit Provider Radiology Diagnostic Radiology | DX: E04.2 Nontoxic multinodular goiter (principal) | CPT/HCPCS: 76536 ==

== ENCOUNTER 2025-01-11 14:54 | Outpatient (AMB) | payer OTHER, SELFPAY ==
--- NOTE | 2025-01-11 14:57 | A.OFFVIS_ITS ---
Vital Signs 01/11/25 14:59 Height 5 ft 3 in Weight 156 lb 8.451 oz BMI 27.7 BP 124/82 Blood Pressure Location Rt brachial Position Sitting Pulse 88 Pulse Source Pulse Oximeter Pulse Oximetry (%) 96 Oxygen Delivery Method Room Air Intake Visit Reasons: Nontoxic single thyroid nodule Intake Note: NEW Patient presents today to establish care for Nontoxic single thyroid nodule: No acute complaints reported at this time Refining Supervisor Required: No Accompanied by: Self / Same As Patient Allergies amoxicillin Allergy (Intermediate, Verified 01/11/25 15:01) Rash cat dander Allergy (Intermediate, Verified 01/11/25 15:01) Itching dog dander Allergy (Intermediate, Verified 01/11/25 15:01) Rash HPI Comments Details: 24 yo female with Migraine, hx of concussion, seen in office for evaluation of thyroid nodules. US of thyroid was ordered for a posterior neck lymph node. She reports that this lymph node has been there for around a year with multiple variations in size, not associated with infections. No personal history of thyroid disease No family history thyroid of thyroid cancer No radiation of neck/head No Biotin intake ROS: Reports fatigue, Poor sleep- unable to fall sleep Weight estable No constipation or diarrhea No heat or cold intolerance No hair falling or frail nails No voice changes No dysphagia or odinophagia Physical exam General: Well appearing. NAD. Neck/Thyroid: Thyroid not palpable, no nodules. CV: RRR, no murmur. No edema. Resp:Lungs clear to auscultation bilaterally Abdomen: Soft, nontender. nondistended Extremities/Neuro: No weakness or tremor of outstretched hands Laboratory Tests 10/13/24 16:05 Sodium 139 Potassium 3.7 Creatinine 0.77 Estimated GFR > 60 25-OH Vitamin D Total 38.9 TSH 0.36 Imaging: Thyroid US 01/04/25 FINDINGS: SIZE: The right thyroid lobe measures 5.8 x 1.7 x 1.8 cm.? The left thyroid lobe measures 5.2 x 1.8 x 1.3 cm. ? The isthmus measures 4 mm. FLOW:? Flow to the gland is normal. ECHOGENICITY:? The echotexture of the gland is homogeneous. NODULES: Right-sided nodules are identified with imaging characteristics as follows: Nodule #: 1 Location: Upper pole of the right thyroid lobe measuring 14 x 10 x 12mm. Shape:? Wider than tall (0 points) Margins:? Smooth (0 points) Echotexture:? Very hypoechoic (3 points) Composition:? Solid (2 points) Calcifications:? None (0 points) Total points: 5 TIRADS: TR4: Moderately suspicious. Nodule #: 2 Location: Lower pole of the right thyroid lobe measuring 17 x 13 x 12mm. Shape:? Taller than wide (3 points) Margins:? Smooth (0 points) Echotexture:? Hypoechoic (2 points) Composition:? Solid (2 points) Calcifications:? None (0 points) Total points: 7 TIRADS: TR5: Highly suspicious. Incidental note is made of a 1.0 x 0.5 x 1.1 cm normal-appearing superficial lymph node on the right, corresponding to a palpable abnormality. PFSH Surgical History (Updated 01/11/25 @ 15:04 by JOSE Hassan) Hx of wisdom tooth extraction Family History (Updated 10/13/24 @ 15:34 by JOSE Burkett) Mother Asthma High blood pressure Social History (Updated 10/13/24 @ 15:29 by JOSE Burkett) Housing: House Patient Tobacco Use Status: Never used Tobacco e-Cigarette/Vaping Use: Never Used Second Hand Smoke Exposure: No service: No Current occupational status: employed Current occupation: preK teacher Current occupational exposures/hazards: No Cognitive needs: No Hearing needs: No Vision needs: No Physical Exam Vital Signs: Last Vital Signs Pulse 88 01/11/25 14:59 BP 124/82 01/11/25 14:59 Pulse Ox 96 01/11/25 14:59 Oxygen Delivery Method Room Air 01/11/25 14:59 BMI result Body Mass Index 27.7 Assessment & Plan Assessment & Plan (1) Thyroid nodule: Code(s): E04.1 - Nontoxic single thyroid nodule Category: Medical Plan Multinodular goiter, incidentally found No previous hx of thyroid disease or thyroid cancer personal or familiar Review US independently, and agree with findings She is clinically and biochemically euthyroid Discussed rational for FNA of right lower pole nodule biopsy. Discussed rational for monitoring the right upper thyroid nodule. We discuss the FNA procedure and details Patient agreed to FNA Coding Level of Care Code New Pt Level 3 (63488) Diagnoses Thyroid nodule E04.1 Time Spent (min) 35 Comment Time spent reviewing previous records, labs, imaging, provider notes; and education
[2025-01-11 14:59] VITALS: BP 124/82; PULSE 88; O2SAT 96; BMI 27.7
--- OUTSIDE RECORDS SUMMARY | 2025-01-11 21:08 | XMS_ITS | Clinical Summary ---
Author Organization [facility] Address [address] [place] [phone] Phone Care Team Providers Care Meal Cooker Name Role Phone Janelle Beavers DO Primary Care Provider [phone] Allergies Active Allergy Reactions Criticality Noted Date [...] EDT Clinical Support Obstetrics and Gynecology - [address] [phone] Surveillance for Depo-Provera contraception (Primary Dx) 12/28/2024 Telephone Obstetrics and Gynecology - [address] [phone] [place] CNM from Last 3 Months Surgical History Surgery Date Site/Laterality Comments ESOPHAGOGASTRODUODENOSCOPY 08/09/2020 PROCEDURE: OK EGD TRANSORAL BIOPSY SINGLE/MULTIPLE; COMMENT: Minimal erythema [...] MOLECULAR DIAGNOSTICS METHOD 04/15/2024 9:12 AM EST [facility] Chlamydia trachomatis PCR Negative Negative LAB MOLECULAR DIAGNOSTICS METHOD 04/15/2024 9:12 AM EST [facility] Swab Vaginal structure / Unknown Non-blood Collection / Unknown 04/14/2024 12:48 PM EST 04/14/2024 12:48 PM EST Beatriz Rodriguez MD LAB MICROBIOLOGY - GENERAL RODRIGO JOHNS Final Result [facility] [address] [place] [address], * Pap smear (09/09/2023) 09/09/2023 Narrative HISTORICAL TESTING LAB RESULTING AGENCY - 09/22/2023 3:26 PM EDT [id number] THINPREP PAP, IMAGED: ATYPICAL SQUAMOUS CELLS OF [...] Most Recently Relevant to Health Maintenance Insurance [employer] [employer] [employer] Care Teams Meal Cooker Relationship Specialty Start Date End Date Janelle Beavers DO [address] [place] [address] PCP - General Internal Medicine 07/18/21
--- OUTSIDE RECORDS SUMMARY | 2025-01-11 21:09 | XMS_ITS | Clinical Summary ---
Author Organization [facility] Address [address] [place] [phone] Phone Care Team Providers Care Communication Lecturer Name Role Phone Deann Atkinson NP Primary Care Provider Allergies Active Allergy Reactions Criticality Noted Date Comments Amoxicillin Rash Low 04/12/2023 Azithromycin GI Upset 12/12/2024 Dog Dander Sneezing Low 05/13/2024 Hives, throat starts to close, sneezing running eyes CATS TOO Anything with fur. Doxycycline Rash Low 03/31/2015 Latex 04/12/2023 Other Reaction(s): Other Unsure of reaction Medications medroxyPROGESTE Jeanmarie (DEPO-PROVERA) 150 mg/mL injection INJECT 1ML INTO THE MUSCLE EVERY 3 MONTHS 2 Active nitrofurantoin (MACRODANTIN) 50 MG capsule Take 1 capsule by mouth every morning. 5 Active phenazopyridine (PYRIDIUM) 100 MG tablet Take 2 tablets (200 mg total) by mouth 3 (three) times a day as needed for pain (specific location in comments) (URINARY DISCOMFORT). 12 tablet 5 Active Additional Information Patient not taking.Reported on 10/10/2024 acetaminophen (TYLENOL) 500 MG tablet take 1 tablet by mouth every 4-6 hours as needed 5 Active cyclobenzaprine (FLEXERIL) 5 MG tablet Take 5 mg by mouth nightly at bedtime. 5 Active IBU 600 mg tablet take one tablet by mouth every 6 to 8 hours as needed 5 Active cefpodoxime (VANTIN) 200 MG tablet Take 1 tablet by mouth 2 (two) times a day. 5 Active fluconazole (DIFLUCAN) 150 MG tablet TAKE 1 TABLET BY MOUTH TODAY MAY REPEAT IN 72 HOURS IF STILL SYMPTOMATIC 5 Active albuterol (PROAIR HFA) 90 mcg/actuation inhaler Inhale 2 puffs into the lungs every 4 (four) hours as needed for wheezing. 18 g 5 Active inhaler spacing device (AEROCHAMBER,BR EATHERITE) Spcr Inhale 1 each into the lungs every 4 (four) hours as needed (with inhaler). 1 each 5 Active predniSONE (DELTASONE) 20 MG tablet Take 3 tablets (60 mg total) by mouth daily for 5 days. 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 [address] [place] [address] Melvi Reyes FNP Discharge Disposition: Home or Self Care 12/12/2024 6:10 PM EDT Office Visit [facility] at [address] [address] Melvi Reyes FNP Acute upper respiratory infection (Primary Dx) from Last 3 Months Immunizations Immunization Administration Dates Next Due DTaP 03/15/2019, 5,01/15/2001,09/15,1999,1999 [id number] 01/15/2001,1999 HPV,quadrivalent 06/06/2014,11/26/2012, 3 Hepatitis B 1999,1999,1999 [...] B/RSV CEPHEID Routine 12/12/2024 6:24 PM EDT from Last 3 Months Results * XR CHEST PA AND LATERAL 2 VIEWS (12/12/2024 6:43 PM EDT) Anatomical Region Laterality Modality Chest Computed Radiogr aphy 12/12/2024 7:14 PM EDT Impressions 12/12/2024 7:15 PM EDT Normal chest. Narrative 12/12/2024 7:15 PM EDT XR CHEST PA AND LATERAL 2 VIEWS Referring clinician's provided indication for this examination in Epic: Cough; strep 5 days ago, now fever, [...] clinician's provided indication for this examination in [facility]:Cough; strep 5 days ago, now fever, cough and chest tightness. productivegreen COMPARISON: None FINDINGS: Devices/Tubes/Lines: None. Lungs: Normal. The lungs are clear. No focal consolidation or pulmonaryedema. Pleura: Normal. No pleural effusion or pneumothorax. Heart/Mediastinum: Normal heart and mediastinum. Bones/Soft Tissues: Normal. No significant skeletal abnormality. IMPRESSION: Normal chest. Melvi PATEL IMG XR CHEST Final Resul t * POCT COVID-19 RT-PCR/Influenza A & B/RSV (Cepheid) (12/12/2024 6:24 PM EDT) [facility] RSV PCR Negative Negative [facility] SARS-CoV-2 (COVID-19) Negative Negative [facility] Influenza A PCR Negative Negative [facility] Influenza B PCR Negative Negative [facility] 12/12/2024 6:24 PM EDT 12/12/2024 7:05 PM EDT Melvi Reyes FORENSIC ENGINEER POINT OF CARE TEST ORDERABL ES Final Result [facility] [address] [address], [facility] [phone] from Last 3 Months Insurance [employer] [place] [address] [place] [address] [employer] DIRECT Care Teams Communication Lecturer Relationship Specialty Start Date End Date Deann Atkinson NP [address] [place] [address] [place] [address] [email or web address] PCP - General Nurse Practitioner 12/12/24 Additional Source Comments The information contained in this document represents components of the legal health record. It is not the complete legal health record.[facility]
== END 2025-01-11 15:40 | disposition home or self-care (01) ==
LOC: HO.ENCR 14:55
PROVIDERS: PCP Nurse Practitioner Family; Visit Provider Student in an Organized Health Care Education/Training Program
DX: E04.1 Nontoxic single thyroid nodule (principal)
CPT/HCPCS: 99203

== ENCOUNTER → 2025-01-11 14:54 | Outpatient (BNVA) | payer OTHER, SELFPAY | PROVIDERS: PCP Nurse Practitioner Family; Visit Provider Student in an Organized Health Care Education/Training Program | DX: E04.1 Nontoxic single thyroid nodule (principal) | CPT/HCPCS: 99202 ==

== ENCOUNTER 2025-02-01 08:24 | Outpatient (REF) | payer OTHER, SELFPAY ==
--- OUTSIDE RECORDS SUMMARY | 2025-01-30 16:40 | XMS_ITS | Encounter Summary ---
Author Organization [facility] Address [address] [place] [address] [place] [address] Phone Care Team Providers Care Clinical Implementation Specialist Name Role Phone Deann Atkinson SALES OPERATIONS ASSOCIATE Primary Care Provider Reason for Visit * Reason Comments Sore Throat Sore throat, was pos itive for strep 1 month ago. Encounter Details Date Type Department Care Team ([facility] st Contact Info) Description 01/30/2025 4:40 PM EST Office Visit [facility] at [address] [address] Melvi Reyes, [address] [address] [email or web address] [email or web address] [place]al ph[place]itis (Primary Dx) Social History Tobacco Use Types Packs/Day Years Used Date Smoking Tobacco: Never Smokeless Tobacco: Never Education Answer Date Recorded Are you interested [...] Sign Reading Time Taken Comments Blood Pressure 117/84 01/30/2025 4:50 PM EST Pulse 92 01/30/2025 4:50 PM EST Temperature 37.2 C (98.9 F) 01/30/2025 4:50 PM EST Respiratory Rate 12 01/30/2025 4:50 PM EST Oxygen Saturation 95% 01/30/2025 4:50 PM EST Inhaled Oxygen Concentration - - Weight - - Height - - Body Mass Index - - documented in this encounter Patient Instructions * Patient Instructions* Melvi Reyes FNP - 01/30/2025 4:40 PM EST REST PLENTY OF FLUIDS WARM SALT WATER GARGLES 4 X A DAY THROAT LOZENGES TYLENOL IBUPROFEN DRINK HOT WATER WITH HONEY, SLICE OF FRESH KAROLYN AND LEMON. * Attachments The following attachments cannot be sent through Care Everywhere. * Sore Throat (Swiss) documented in this encounter Progress Notes * Melvi Reyes FNP - 01/30/2025 4:40 PM EST Images from the original note were not included. Subjective: Patient ID: Maria De Jesus Medina is a 24 y.o. female. Pt complain of sore throat for 2 days. Is being worked up for thyroid mass. Complain of fatigue. Had strep one month ago. Review of Systems Constitutional: Positive for fatigue. Negative for fever. HENT: Positive for sore throat. Negative for congestion and ear pain. Eyes: Negative for pain. Respiratory: Negative for cough and shortness of breath. Cardiovascular: Negative for chest pain. Gastrointestinal: Negative for abdominal pain, constipation, diarrhea, nausea and vomiting. Genitourinary: Negative for dysuria and flank pain. Neurological: Negative for dizziness, light-headedness and headaches. Hematological: Negative for adenopathy. All other systems reviewed and are negative. Skin: Negative for color change. Musculoskeletal: Negative for joint pain, back pain and neck pain. Vitals: 01/30/25 1650 BP: 117/84 BP Location: Left arm Patient Position: Sitting Cuff Size: Medium Pulse: 92 Resp: 12 Temp: 37.2 ??C (98.9 ??F) TempSrc: Oral SpO2: 95% Objective: Physical Exam Vitals and nursing note reviewed. Constitutional: General: She is not in acute distress. Appearance: Normal appearance. She is not ill-appearing, toxic-appearing or diaphoretic. HENT: Head: Normocephalic and atraumatic. Right Ear: Tympanic membrane and ear canal normal. Left Ear: Tympanic membrane and ear canal normal. Nose: Nose normal. No congestion or rhinorrhea. Mouth/Throat: Mouth: Mucous membranes are moist. No oral lesions. Pharynx: Oropharynx is clear. Posterior oropharyngeal erythema present. No pharyngeal swelling, oropharyngeal exudate or uvula swelling. Tonsils: No tonsillar exudate or tonsillar abscesses. Eyes: Extraocular Movements: Extraocular movements intact. Conjunctiva/sclera: Conjunctivae normal. Pupils: Pupils are equal, round, and reactive to light. Neck: Comments: Swelling right cervical Cardiovascular: Rate and Rhythm: Normal rate and regular rhythm. Pulses: Normal pulses. Heart sounds: Normal heart sounds. Pulmonary: Effort: Pulmonary effort is normal. No respiratory distress. Breath sounds: Normal breath sounds. No wheezing or rales. Abdominal: General: Abdomen is flat. Palpations: Abdomen is soft. Musculoskeletal: General: Normal range of motion. Cervical back: Normal range of motion and neck supple. Skin: General: Skin is warm and dry. Coloration: Skin is not pale. Findings: No erythema or rash. Neurological: General: No focal deficit present. Mental Status: She is alert and oriented to person, place, and time. Mental status is at baseline. Psychiatric: Mood and Affect: Mood normal. Behavior: Behavior normal. Thought Content: Thought content normal. Judgment: Judgment normal. Results for orders placed or performed in visit on 01/30/25 POCT Group A Streptococcus, PCR Result Value Ref Range Strep A, PCR Not Detected Not Detected Procedure: Procedures Assessment/Plan: Diagnosis Plan 1. Viral pharyngitis Assessment and Plan: Well-appearing patient in no acute distress complaining of sore throat for 2 days. States she had strep 1 month ago. States she also has a mass on the right side of her neck which she is being workedup for. Only other symptom is some fatigue. Strep neg Discussed and agreed on pharm and non pharm plan of care. Recheck if worsening or no better 2-3 days. documented in this encounter Plan of Treatment Not on file documented as of this encounter Procedures Procedure Name Priority Date/Time Associated Diagnosis Comments POCT GROUP A STREPTOCOCCUS, PCR Routine 01/30/2025 4:54 PM EST documented in this encounter Results * POCT Group A Streptococcus, PCR (01/30/2025 4:54 PM EST) Strep A, PCR Not Detected Not Detected 01/31/20 5:22 PM EST [facility] Swab (Throat) 01/30/2025 4:5 4 PM EST 01/30/2025 5:22 PM EST [facility] POCT DOCKED DEVICE UNSO LICTED RESULTS Final Result [facility] [address] [address], [facility] [phone] documented in this encounter Visit Diagnoses Diagnosis Viral pharyngitis- Primary Acute pharyngitis documented in this encounter Care Teams Clinical Implementation Specialist Relationship Specialty Start Date End Date Deann Atkinson NP [address] [place] [address] [place] [address] [email or web address] PCP - General Nurse Practitioner 12/12/24 documented as of this encounter Additional Source Comments The information contained in this document represents components of the legal health record. It is not the complete legal health record.[facility]
--- NOTE | 2025-02-01 08:28 | PM.PROC ---
Brief Operative Note Date of procedure: 02/01/25 Pre-op diagnosis: Lower pole of the right thyroid lobe measuring 17 x 13 x 12mm.
--- NOTE | 2025-02-01 08:32 | PCN2_ITS ---
Brief Operative Note Date of procedure: 02/01/25 Pre-op diagnosis: Lower pole of the right thyroid lobe 17 x 13 x 12mm. Post-op diagnosis: same Procedure: INDICATION: 17 x 13 x 12mm right lower pole thyroid nodule; FNA performed to assess for malignancy DESCRIPTION OF PROCEDURE: The indications for FNA (to assess for malignancy) were reviewed with the patient in detail. Potential complications (e.g., bleeding, infection, damage to local structures, absence of clear diagnosis after FNA) were reviewed. Alternatives to FNA including conservative observation or surgery were described. The patient understood and agreed to proceed. This wa s documented by the signing of the written informed consent form. A time-out was performed to confirm the patient's identity and the site of planned FNA. The nodule of interest was identified using ultrasound (14 MHz linear array probe). The site of FNA was then draped in the usual fashion and carefully cleaned and prepared using alcohol swabs. The skin at the previously-identified site of needle insertion was iced and sprayed with numbing spray. Under ultrasound guidance, 4 passes were performed using a 1.5-inch, 22-gauge needle, and sample was obtained via capillary action. The needle tip was clearly visualized to be within the nodule at the time of sampling for 4 of 4 passes The patient tolerated the procedure well. There were no immediate complications. A small adhesive bandage was applied, and the patient was advised to take acetaminophen (rather than NSAIDs) for any discomfort and to report any signs of inflammation/infection or marked swelling. IMPRESSION: Technically successful ultrasound-guided fine needle aspiration of 17 x 13 x 12mm right lower pole thyroid nodule thyroid nodule. PLAN: The patient was advised that I will provide follow-up regarding the cytology result and any subsequent plans. Joyce Mathew MD Endocrinology Attending Anesthesia: local Surgeon: Joyce Mathew Condition: stable Disposition: same day
--- OUTSIDE RECORDS SUMMARY | 2025-02-01 08:37 | XMS_ITS | Clinical Summary ---
Author Organization [address] [facility] [address] Address [address] [place] [phone] Phone Care Team Providers Care Psych Sales Specialist Name Role Phone Janelle Beavers DO Primary Care Provider [phone] Allergies Active Allergy Reactions Criticality Noted Date [...] EDT Clinical Support Obstetrics and Gynecology - [address] [phone] Surveillance for Depo-Provera contraception (Primary Dx) 12/28/2024 Telephone Obstetrics and Gynecology - [address] [phone] [place] CNM from Last 3 Months Surgical History Surgery Date Site/Laterality Comments ESOPHAGOGASTRODUODENOSCOPY 08/09/2020 PROCEDURE: AL EGD TRANSORAL BIOPSY SINGLE/MULTIPLE; COMMENT: Minimal erythema [...] MOLECULAR DIAGNOSTICS METHOD 04/15/2024 9:12 AM EST [facility] Chlamydia trachomatis PCR Negative Negative LAB MOLECULAR DIAGNOSTICS METHOD 04/15/2024 9:12 AM EST [facility] Swab Vaginal structure / Unknown Non-blood Collection / Unknown 04/14/2024 12:48 PM EST 04/14/2024 12:48 PM EST Beatriz Rodriguez MD LAB MICROBIOLOGY - GENERAL RODRIGO JOHNS Final Result [facility] [address] [place] [address], * Pap smear (09/09/2023) 09/09/2023 Narrative HISTORICAL TESTING LAB RESULTING AGENCY - 09/22/2023 3:26 PM EDT [id number] THINPREP PAP, IMAGED: ATYPICAL SQUAMOUS CELLS OF [...] Most Recently Relevant to Health Maintenance Insurance [facility] Care Teams Psych Sales Specialist Relationship Specialty Start Date End Date Janelle Beavers DO [address] [place] [address] PCP - General Internal Medicine 07/18/21
--- OUTSIDE RECORDS SUMMARY | 2025-02-01 08:38 | XMS_ITS | Clinical Summary ---
Author Organization [facility] Address [address] [place] [phone] Phone Care Team Providers Care Stripping Shovel Operator Name Role Phone Deann Atkinson NP Primary [...] by mouth 2 (two) times a day. Active fluconazole (DIFLUCAN) 150 MG tablet TAKE 1 TABLET BY MOUTH TODAY MAY REPEAT IN 72 HOURS IF STILL SYMPTOMATIC Active albuterol (PROAIR HFA) 90 mcg/actuation inhaler Inhale 2 puffs into the lungs every 4 (four) hours as needed for wheezing. 18 g 5 Active inhaler spacing device (AEROCHAMBER,BR EATHERITE) Spcr Inhale 1 each into the lungs every 4 (four) hours as needed (with inhaler). 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 Overview (10/28/2023): Clinical diagnosis - formal testing not done Common migraine 10/28/2023 Encounters Date Type Department Care Team Description 01/30/2025 4:40 PM EST Office Visit [facility] at [address] [address] Melvi Reyes FNP Viral pharyngitis (Primary Dx) 12/12/2024 6:37 PM EDT - 12/12/2024 11:59 PM EDT Hospital Encounter [facility] [address] [place] [id number] Melvi Reyes FNP Discharge Disposition: Home or Self Care 12/12/2024 6:10 PM EDT Office Visit [facility] at [address] [address] Melvi Reyes FNP Acute upper respiratory infection (Primary Dx) from Last 3 Months Immunizations Immunization Administration Dates Next Due DTaP 03/15/2019, 5,01/15/2001,09/15,1999,1999 [id number] 01/15/2001,1999 HPV,quadrivalent 06/06/2014,11/26/2012, 3 Hepatitis B 1999,1999,1999 [...] EST Inhaled Oxygen Concentration - - Weight 61.2 [...] patient's age to complete this topic IPV VACCINES Completed 10/31/2004, 12/22, 1999, Additional history exists HPV VACCINES Completed 06/06/2014, 08/2012, 07/19/2012 MENINGOCOCCAL [...] STREPTOCOCCUS, PCR Routine 01/30/2025 4:54 PM EST XR CHEST PA AND LATERAL 2 VIEWS Urgent/patient waiting 12/12/2024 6:43 PM EDT Acute upper respiratory infection POCT COVID-19 RT-PCR/INFLUENZA A & B/RSV CEPHEID Routine 12/12/2024 6:24 PM EDT from Last 3 Months Results * POCT Group A Streptococcus, PCR (01/30/2025 4:54 PM EST) Strep A, PCR Not Detected Not Detected 01/31/20 25 5:22 PM EST [facility] Swab (Throat) 01/30/2025 4:5 4 PM EST 01/30/2025 5:22 PM EST us Melvi [facility] POCT DOCKED DEVICE UNSO LICTED RESULTS Final Result [facility] [address] [address], [facility] [phone] * XR CHEST PA AND LATERAL 2 VIEWS (12/12/2024 6:43 PM EDT) Anatomical Region Laterality Modality Chest Computed Radiogr aphy 12/12/2024 7:14 PM EDT Impressions 12/12/2024 7:15 PM EDT Normal chest. Narrative 12/12/2024 7:15 PM EDT XR CHEST PA AND LATERAL 2 VIEWS Referring clinician's provided indication for this examination in [facility]: Cough; strep 5 days ago, now [...] clinician's provided indication for this examination in [facility]:Cough; strep 5 days ago, now fever, cough and chest tightness. productivegreen COMPARISON: None FINDINGS: Devices/Tubes/Lines: None. Lungs: Normal. The lungs are clear. No focal consolidation or pulmonaryedema. Pleura: Normal. No pleural effusion or pneumothorax. Heart/Mediastinum: Normal heart and mediastinum. Bones/Soft Tissues: Normal. No significant skeletal abnormality. IMPRESSION: Normal chest. us Melvi Reyes CAR BODY INSPECTOR IMG XR CHEST Final Resul t * POCT COVID-19 RT-PCR/Influenza A & B/RSV (Cepheid) (12/12/2024 6:24 PM EDT) [facility] RSV PCR Negative Negative [facility] SARS-CoV-2 (COVID-19) Negative Negative [facility] Influenza A PCR Negative Negative [facility] Influenza B PCR Negative Negative [facility] 12/12/2024 6:24 PM EDT 12/12/2024 7:05 PM EDT us Melvi Reyes CAR BODY INSPECTOR LAB POCT ENTER/EDIT ORDERAB LES Final Result Performing Organization Address City/State/[facility] Co de Phone Number [facility] [address] [address] [phone] from Last [address] [place] [address] [address] [address] [address] [address] [address] [place] [address] [place] [address] [employer] [facility] DIRECT Care Teams Stripping Shovel Operator Relationship Specialty Start Date End Date Deann Atkinson NP [address] [place] [address] [place] [address] [email or web address] PCP - General Nurse Practitioner 12/12/24 Additional Source Comments The information contained in this document represents components of the legal health record. It is not the complete legal health record.[facility]
== END 2025-02-01 08:25 | disposition home or self-care (01) ==
LOC: HO.US 08:24
PROVIDERS: PCP Nurse Practitioner Family; Visit Provider Student in an Organized Health Care Education/Training Program
DX: E04.1 Nontoxic single thyroid nodule (principal)
CPT/HCPCS: 10005; 88173; 88305

== ENCOUNTER → 2025-02-01 08:24 | Outpatient (BNV) | payer OTHER, SELFPAY | PROVIDERS: PCP Nurse Practitioner Family; Visit Provider Student in an Organized Health Care Education/Training Program | DX: E04.1 Nontoxic single thyroid nodule (principal) | CPT/HCPCS: 10005 ==

== ENCOUNTER 2025-02-15 13:45 | Outpatient (AMB) | payer OTHER, SELFPAY ==
--- NOTE | 2025-02-15 13:48 | A.OFFVIS_ITS ---
Vital Signs 3 02/15/25 13:49 Height 5 ft 3 in Weight 158 lb 11.725 oz BMI 28.1 BP 116/72 Blood Pressure Location Rt brachial Position Sitting Pulse 102 H Pulse Source Pulse Oximeter Pulse Oximetry (%) 100 Oxygen Delivery Method Room Air Intake Visit Reasons: Biopsy f/u Intake Note: Patient presents here today for FNA Thyroid Biopsy: * Biopsy Completed on 02/01/2025 L Dirt Supervisor Required: No Accompanied by: Self / Same As Patient Allergies amoxicillin Allergy (Intermediate, Verified 02/15/25 13:49) Rash cat dander Allergy (Intermediate, Verified 02/15/25 13:49) Itching dog dander Allergy (Intermediate, Verified 02/15/25 13:49) Rash Medication List - Last Reconciled 02/15/25 by Joyce Mathew MD magnesium oxide 400 mg PO BEDTIME medroxyprogesterone 150 mg IM [id number] nitrofurantoin macrocrystal 50 mg PO DAILY riboflavin (vitamin B2) 400 mg PO BEDTIME sumatriptan succinate take 1 tab at onset of headache; if no relief may repeat 1 tab after at least 2 hrs; max = 4 tabs/24 hr PO HPI Comments Details: 24 yo female with Migraine, hx of concussion, seen in office for evaluation of thyroid nodules. US of thyroid was ordered for a posterior neck lymph node. She reports that this lymph node has been there for around a year with multiple variations in size, not associated with infections. No personal history of thyroid disease No family history thyroid of thyroid cancer No radiation of neck/head No Biotin intake ROS: Reports fatigue, Poor sleep- unable to fall sleep Weight estable No constipation or diarrhea No heat or cold intolerance No hair falling or frail nails No voice changes No dysphagia or odinophagia Physical exam General: Well appearing. NAD. Neck/Thyroid: Thyroid palpable, no nodules. CV: RRR, no murmur. No edema. Resp:Lungs clear to auscultation bilaterally Abdomen: Soft, nontender. nondistended Extremities/Neuro: No weakness or tremor of outstretched hands Laboratory Tests 10/13/24 16:05 Sodium 139 Potassium 3.7 Creatinine 0.77 Estimated GFR > 60 25-OH Vitamin D Total 38.9 TSH 0.36 FNA 02/01/25 Imaging: Thyroid US 01/04/25 FINDINGS: SIZE: The right thyroid lobe measures 5.8 x 1.7 x 1.8 cm.? The left thyroid lobe measures 5.2 x 1.8 x 1.3 cm. ? The isthmus measures 4 mm. FLOW:? Flow to the gland is normal. ECHOGENICITY:? The echotexture of the gland is homogeneous. NODULES: Right-sided nodules are identified with imaging characteristics as follows: Nodule #: 1 Location: Upper pole of the right thyroid lobe measuring 14 x 10 x 12mm. Shape:? Wider than tall (0 points) Margins:? Smooth (0 points) Echotexture:? Very hypoechoic (3 points) Composition:? Solid (2 points) Calcifications:? None (0 points) Total points: 5 TIRADS: TR4: Moderately suspicious. Nodule #: 2 Location: Lower pole of the right thyroid lobe measuring 17 x 13 x 12mm. Shape:? Taller than wide (3 points) Margins:? Smooth (0 points) Echotexture:? Hypoechoic (2 points) Composition:? Solid (2 points) Calcifications:? None (0 points) Total points: 7 TIRADS: TR5: Highly suspicious. Incidental note is made of a 1.0 x 0.5 x 1.1 cm normal-appearing superficial lymph node on the right, corresponding to a palpable abnormality. PFSH Surgical History Hx of ultrasound guided needle biopsy Hx of wisdom tooth extraction Family History Mother Asthma High blood pressure Social History Housing: House Patient Tobacco Use Status: Never used Tobacco e-Cigarette/Vaping Use: Never Used Second Hand Smoke Exposure: No service: No Current occupational status: employed Current occupation: preK teacher Current occupational exposures/hazards: No Cognitive needs: No Hearing needs: No Vision needs: No Physical Exam Vital Signs: Last Vital Signs Pulse 102 H 02/15/25 13:49 BP 116/72 02/15/25 13:49 Pulse Ox 100 02/15/25 13:49 Oxygen Delivery Method Room Air 02/15/25 13:49 BMI result Body Mass Index 28.1 Assessment & Plan Assessment & Plan (1) Thyroid nodule: Code(s): E04.1 - Nontoxic single thyroid nodule Category: Medical Plan Multinodular goiter, incidentally found No previous hx of thyroid disease or thyroid cancer personal or familiar Review US independently, and agree with findings Unfortunately FNA resulted non-diagnostic, which is a possible outcome. We discussed that the diagnostic yield for a second fine-needle aspiration (FNA) after a first non-diagnostic attempt is about 42.4%, though it can vary. She is clinically and biochemically euthyroid Discussed rational for FNA of right lower pole nodule biopsy. Discussed rational for monitoring the right upper thyroid nodule. We discuss the FNA procedure and details She agreed to repeat FNA. If 2nd FNA results non-diagnostic we have discussed that a core biopsy should be the next step. Orders: Orders 2 US thyroid 1 Year E04.1 - Nontoxic single thyroid nodule Coding Level of Care Code Est Pt Level 3 (93028) Diagnoses Thyroid nodule E04.1
[2025-02-15 13:49] VITALS: BP 116/72; PULSE 102; O2SAT 100; BMI 28.1
--- OUTSIDE RECORDS SUMMARY | 2025-02-15 16:51 | XMS_ITS | Clinical Summary ---
Author Organization [address] Building Address [address] [place] [phone] Phone Care Team Providers Care Electrician Locomotive Name Role Phone Nimesh Tranasir Primary Care Provider [phone] Allergies Active Allergy Reactions Criticality Noted Date Comments Amoxicillin Rash High 03/04/2024 Doxycycline Rash 03/31/2015 Latex Other 03/04/2024 Unsure of reaction Medications No known medications Active Problems No known active problems Encounters Date Type Department Care Team Description 01/03/2025 4:00 PM EDT Clinical Support Obstetrics and Gynecology - [address] [phone] Surveillance for Depo-Provera contraception (Primary Dx) 12/28/2024 Telephone Obstetrics and Gynecology - [address] [phone] [place] CNM from Last 3 Months Surgical History Surgery Date Site/Laterality Comments ESOPHAGOGASTRODUODENOSCOPY 08/09/2020 PROCEDURE: [place] EGD TRANSORAL BIOPSY SINGLE/MULTIPLE; COMMENT: Minimal erythema [...] MOLECULAR DIAGNOSTICS METHOD 04/15/2024 9:12 AM EST [facility] Chlamydia trachomatis PCR Negative Negative LAB MOLECULAR DIAGNOSTICS METHOD 04/15/2024 9:12 AM EST [facility] Swab Vaginal structure / Unknown Non-blood Collection / Unknown 04/14/2024 12:48 PM EST 04/14/2024 12:48 PM EST us Beatriz Rodriguez MD LAB MICROBIOLOGY - GENERAL RODRIGO JOHNS Final Result Performing Organization Address City/[facility]/ZIP Co de Phone Number [facility] [address] [place] [address], * Pap smear (09/09/2023) 09/09/2023 Narrative HISTORICAL TESTING LAB RESULTING AGENCY - 09/22/2023 3:26 PM EDT [id number] THINPREP PAP, IMAGED: ATYPICAL SQUAMOUS CELLS OF [...] HORMONES, PAP HX NEGATIVE, [[id number]] us Paul Wooten CNM LAB CYTOLOGY ORDERABLES Final Result HISTORICAL TESTING LAB RESULTING AGENCY from Last 3 Months or Most Recently Relevant to Health Maintenance Insurance [facility] PL[facility] Care Teams Electrician Locomotive Relationship Specialty Start Date End Date Janelle Beavers DO [address] [place] [address] PCP - General Internal Medicine 07/18/21
--- OUTSIDE RECORDS SUMMARY | 2025-02-15 16:52 | XMS_ITS | Clinical Summary ---
Author Organization [facility] Address [address] [place] [id number] Phone Care Team Providers Care Analyst Geochemical Prospecting Name Role Phone Deann Atkinson NP Primary [...] Description 01/30/2025 4:40 PM EST Office Visit [facility] at [address] [address] Melvi Reyes FNP Viral pharyngitis (Primary Dx) 12/12/2024 6:37 PM EDT - 12/12/2024 11:59 PM EDT Hospital Encounter [facility] [address] [place] [id number] Melvi Reyes FNP Discharge Disposition: Home or Self Care 12/12/2024 6:10 PM EDT Office Visit [facility] at [address] [address] Melvi Reyes FNP Acute upper respiratory infection (Primary Dx) from Last 3 Months Immunizations Immunization Administration Dates Next Due DTaP 03/15/2019, 5,01/15/2001,09/15,1999,1999 LHrE-Pjw-DGS 01/15/2001,1999 HPV,quadrivalent 06/06/2014,11/26/2012, 3 Hepatitis B 1999,1999,1999 [...] VACCINE (#1) 2024 12/11/2009, 2006 COVID-19 VACCINE (3 - season) 2024 07/31/2020, 07/07/2020 SMOKING Hx and [...] Not Detected 01/31/20 25 5:22 PM EST [facility] Swab (Throat) 01/30/2025 4:5 4 PM EST 01/30/2025 5:22 PM EST Melvi Reyes SQL CONSULTANT LAB POCT DOCKED DEVICE UNSO LICTED RESULTS Final Result [facility] [address] [address], [facility] [phone] * XR CHEST PA AND LATERAL 2 VIEWS (12/12/2024 6:43 PM EDT) Anatomical Region Laterality Modality Chest Computed Radiogr aphy 12/12/2024 7:14 PM EDT Impressions 12/12/2024 7:15 PM EDT Normal chest. Narrative 12/12/2024 7:15 PM EDT XR CHEST PA AND LATERAL 2 VIEWS Referring clinician's provided indication for this examination in [facility]: Cough; strep 5 days ago, now [...] clinician's provided indication for this examination in [facility]:Cough; strep 5 days ago, now fever, cough and chest tightness. productivegreen COMPARISON: None FINDINGS: Devices/Tubes/Lines: None. Lungs: Normal. The lungs are clear. No focal consolidation or pulmonaryedema. Pleura: Normal. No pleural effusion or pneumothorax. Heart/Mediastinum: Normal heart and mediastinum. Bones/Soft Tissues: Normal. No significant skeletal abnormality. IMPRESSION: Normal chest. Melvi Reyes SQL CONSULTANT IMG XR CHEST Final Resul t * POCT COVID-19 RT-PCR/Influenza A & B/RSV (Cepheid) (12/12/2024 6:24 PM EDT) [facility] RSV PCR Negative Negative [facility] SARS-CoV-2 (COVID-19) Negative Negative [facility] POC Influenza A PCR Negative Negative [facility] Influenza B PCR Negative Negative [facility] 12/12/2024 6:24 PM EDT 12/12/2024 7:05 PM EDT Melvi Reyes SQL CONSULTANT LAB POCT ENTER/EDIT ORDERAB LES Final Result [facility] [address] [address], [facility] [phone] from Last 3 Months Insurance [employer] [facility] [employer] [place] [address] [employer] [facility] [employer] [address] [place] [address] [place] [address] [place] [address] [employer] [facility] [employer] DIRECT Care Teams Analyst Geochemical Prospecting Relationship Specialty Start Date End Date Deann Atkinson NP [address] [place] [address] [place] [address] [email or web address] PCP - General Nurse Practitioner 12/12/24 Additional Source Comments The information contained in this document represents components of the legal health record. It is not the complete legal health record.[facility]
== END 2025-02-15 14:20 | disposition home or self-care (01) ==
LOC: HO.ENCR 13:46
PROVIDERS: PCP Nurse Practitioner Family; Visit Provider Student in an Organized Health Care Education/Training Program
DX: E04.1 Nontoxic single thyroid nodule (principal)
CPT/HCPCS: 99213

== ENCOUNTER → 2025-02-15 13:45 | Outpatient (BNVA) | payer OTHER, SELFPAY | PROVIDERS: PCP Nurse Practitioner Family; Visit Provider Student in an Organized Health Care Education/Training Program | DX: E04.1 Nontoxic single thyroid nodule (principal) | CPT/HCPCS: 99212 ==

== ENCOUNTER 2025-03-22 08:39 | Outpatient (REF) | payer OTHER, SELFPAY ==
--- OUTSIDE RECORDS SUMMARY | 2025-03-22 08:43 | XMS_ITS | Clinical Summary ---
Author Organization [address] Building Address [address] [place] [phone] Phone Care Team Providers Care Suit Attendant Name Role Phone Nimesh Tranasir Primary Care Provider [phone] Allergies Active Allergy Reactions Criticality Noted Date Comments Amoxicillin Rash High 03/04/2024 Doxycycline Rash 03/31/2015 Latex Other 03/04/2024 Unsure of reaction Medications No known medications Active Problems No known active problems Encounters Date Type Department Care Team Description 01/03/2025 4:00 PM EDT Clinical Support Obstetrics and Gynecology - [address] [phone] Surveillance for Depo-Provera contraception (Primary Dx) 12/28/2024 Telephone Obstetrics and Gynecology - [address] [phone] [place] CNM from Last 3 Months Surgical History Surgery Date Site/Laterality Comments ESOPHAGOGASTRODUODENOSCOPY 08/09/2020 PROCEDURE: SD EGD TRANSORAL BIOPSY SINGLE/MULTIPLE; COMMENT: Minimal erythema [...] MOLECULAR DIAGNOSTICS METHOD 04/15/2024 9:12 AM EST [facility] Chlamydia trachomatis PCR Negative Negative LAB MOLECULAR DIAGNOSTICS METHOD 04/15/2024 9:12 AM EST [facility] Swab Vaginal structure / Unknown Non-blood Collection / Unknown 04/14/2024 12:48 PM EST 04/14/2024 12:48 PM EST us Beatriz Rodriguez MD LAB MICROBIOLOGY - GENERAL RODRIGO JOHNS Final Result Performing Organization Address City/[facility]/ZIP Co de Phone Number [facility]) [facility] [address] [place] [address], * Pap smear (09/09/2023) 09/09/2023 Narrative HISTORICAL TESTING LAB RESULTING AGENCY - 09/22/2023 3:26 PM EDT [id number] THINPREP PAP, IMAGED: ATYPICAL SQUAMOUS CELLS OF [...] Most Recently Relevant to Health Maintenance Insurance [facility] [employer] Care Teams Suit Attendant Relationship Specialty Start Date End Date Janelle Beavers DO [address] [place] [address] PCP - General Internal Medicine 07/18/21
--- OUTSIDE RECORDS SUMMARY | 2025-03-22 08:43 | XMS_ITS | Clinical Summary ---
Author Organization [facility] Address [address] [place] [address] Phone Care Team Providers Care Flux Tube Attendant Name Role Phone Deann Atkinson NP Primary [...] comments) (URINARY DISCOMFORT). 12 tablet 5 Active acetaminophen (TYLENOL) 500 MG tablet take 1 [...] needed for wheezing. 18 g 5 Active Additional Information Patient not taking.Reported on 02/19/2025 inhaler spacing device (AEROCHAMBER,BR EATHERITE) Spcr Inhale 1 each into the lungs every 4 (four) hours as needed (with inhaler). 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 Overview (10/28/2023): Clinical diagnosis - formal testing not done Common migraine 10/28/2023 Encounters Date Type Department Care Team Description 02/19/2025 11:30 PM EST Office Visit [facility] [address] [address] Janelle Callejas CNP Vaginal discharge (Primary Dx); Dysuria 01/30/2025 4:40 PM EST Office Visit [facility] [address] [address] Melvi Reyes, AMANDA Viral pharyngitis (Primary Dx) from Last 3 Months Immunizations Immunization Administration Dates Next Due DTaP 03/15/2019, 5,01/15/2001,09/15,1999,1999 LFfP-Vmr-UMR 01/15/2001,1999 HPV,quadrivalent 06/06/2014,11/26/2012, 3 Hepatitis B 1999,1999,1999 [...] a working camera? Not on file Comments No Sex and Gender Information Value Date Recorded Sex Assigned at Not on file Legal Sex Female 5:45 PM EDT Gender Identity Not on file Sexual Orientation Not on file Last Filed Vital Signs Vital Sign Reading Time Taken Comments Blood Pressure 133/77 02/19/2025 12:31 PM EST Pulse 96 02/19/2025 12:31 PM EST Temperature 36.7 C (98 F) 02/19/2025 12:31 PM EST Respiratory Rate 16 02/19/2025 12:31 PM EST Oxygen Saturation 98% 02/19/2025 12:31 PM EST Inhaled Oxygen Concentration - - [...] COVID-19 VACCINE ( season) 2024 07/31/2020, 07/07/2020 PAP SMEAR 09/08/2026 09/09/2023 Adult Td,Tdap Booster 03/15/2029 03/15/2019, 012 HIB VACCINES Completed 01/15/2001, 12/22, 1999, Additional history exists PNEUMOCOCCAL VACCINES (0-49 years) Aged Out 01/15/2001 No longer eligible based on patient's age to complete this topic HPV VACCINES Completed 06/06/2014, 08/2012, 07/19/2012 MENINGOCOCCAL VACCINES (ACWY) Completed 06/25/2015, 07/21/2011 SMOKING STATUS SCREENING (Once After 26 Yrs) Completed 02/19/2025 HEPATITIS A VACCINES Aged Out No long er eligible based on patient's age to complete this topic MENINGOCOCCAL VACCINES (B) Aged Out N o longer eligible based on patient's age to complete this topic Medical Devices Not on file Procedures Procedure Name Priority Date/Time Associated Diagnosis Comments VAGINITIS/VAGINOSIS SCREEN (BD AFFIRM) Routine 02/19/2025 1:05 PM EST Dysuria CHLAMYDIA TRACHOMATIS AND NEISSERIA GONORRHOEAE NUCLEIC ACID DETECTION Routine 02/19/2025 1:05 PM EST Dysuria POCT URINE HCG Routine 02/19/2025 12:54 PM EST Dysuria POCT URINALYSIS, DIPSTICK Routine 02/19/2025 12:51 PM EST POCT GROUP A STREPTOCOCCUS, PCR Routine 01/30/2025 4:54 PM EST from Last 3 Months Results * Vaginitis/Vaginosis Screen (02/19/2025 1:05 PM EST) Bacterial Vaginosis (BV) Not Detected Not Detected 02/19/2025 6:27 PM EST [facility] Sydni group Not Detected Not Detected 025 6:27 PM [facility] Sydni glabrata-krusei Not Detected Not Detected 02/19/2025 6:27 PM [facility] Trichomonas vaginalis Not Detected Not Detected 02/19/2025 6:27 PM [facility] Swab (Vagina) Non-Blood Collection / Unknown 02/19/2025 1:05 PM EST 02/19/2025 1:05 PM EST us Janelle Callejas [facility] GENERAL ORDERABLES Final Result [address] [id number] * Chlamydia trachomatis and Neisseria gonorrhoeae Nucleic Acid Amplification (02/19/2025 1:05 PM EST) N.gonorrhoeae, AMP Not Detected Not Detected 02/20/2025 9:22 AM [facility] Comment:This test is not rec ommended for evaluation of suspected sexual abuse or for other medico-legal indications This assay should not be used to determine therapeutic success as DNA may persist after appropriate antimicrobial therapy. This test has not been evaluated in patients younger than 14 years of age. Penile and Urethral specimen are not approved specimen types, interpret results with caution. C.trachomatis, AMP Not Detected Not Detected 02/20/2025 9:22 AM [facility] Comment:This test is not rec ommended for evaluation of suspected sexual abuse or for other medico-legal indications This assay should not be used to determine therapeutic success as DNA may persist after appropriate antimicrobial therapy. This test has not been evaluated in patients younger than 14 years of age. Penile and Urethral specimen are not approved specimen types, interpret results with caution. Swab (Vagina) Non-Blood Collection / Unknown 02/19/2025 1:05 PM EST 02/19/2025 1:05 PM EST [facility] - 02/20/2025 9:[address]/NG Assay performance has not been evaluated on patients less than 14 years of age Janelle Callejas CONTRACTING SPECIALIST LAB GENERAL ORDERABLES Final Result [facility] [address] [place] [address] * Poct Urine HCG (02/19/2025 12:54 PM EST) HCG, urine Negative, Internal QCs acceptable Negative [facility] 02/19/2025 12:5 4 PM EST Janellemolly Valles Júnior [facility] POCT ENTER/EDIT ORD ERABLES Final Result [facility] AT [address] [address], [facility] [phone] * (ABNORMAL) POCT Urinalysis, Dipstick (02/19/2025 12:51 PM EST) Color Yellow Colorless, Light Yellow, Yellow, Not Entered 02/19/2025 12:53 PM EST [facility] Clarity Clear Clear, Not Entered 02/19/2025 12:53 PM EST [facility] Glucose Negative Negative 02/19/2025 12:53 PM EST [facility] Ketone Negative Negative 02/19/2025 12:53 PM EST [facility] Urobilinogen 0.2 <1.0 02/19/2025 12:53 PM EST [facility] Bilirubin, Urine Negative Negative 02/20/20 12:53 PM EST [facility] Blood Negative Negative 02/19/2025 12:53 PM EST [facility] Protein Negative Negative 02/19/2025 12:53 PM EST [facility] Nitrites Negative Negative 02/19/2025 12:53 PM EST [facility] Leukocytes Trace(A) Negative 02/19/2025 12:53 PM EST [facility] pH 6.0 5.0 - 8.0 02/19/2025 12:53 PM EST [facility] Specific Ruso 1.020 1.001 - 1.030 02/19/2025 12:53 PM EST [facility] Urine (Urine, Voided) 02/19/2025 12:51 PM EST 02/19/2025 12:53 PM EST us Janelle Callejas CONTRACTING SPECIALIST LAB POCT DOCKED DEVICE UNSOLICTED RESULTS Final Result [facility] AT [address] [address], [facility] [phone] * POCT Group A Streptococcus, PCR (01/30/2025 4:54 PM EST) [facility] Strep A, PCR Not Detected Not Detected 01/31/20 5:22 PM EST [facility] Swab (Throat) 01/30/2025 4:5 4 PM EST 01/30/2025 5:22 PM EST us Melvi SCHULZP LAB POCT DOCKED DEVICE UNSO LICTED RESULTS Final Result Performing Organization Address [facility] Co de Phone Number [facility] [address] [address], [facility] [phone] from Last 3 Months Insurance [facility] DIRECT [employer] [place] [address] [address] [place] [address] [address] [employer] [facility] Care Teams Flux Tube Attendant Relationship Specialty Start Date End Date Deann Atkinson NP [address] [place] [address] [place] [address] [email or web address] PCP - General Nurse Practitioner 12/12/24 Additional Source Comments The information contained in this document represents components of the legal health record. It is not the complete legal health record.[facility]
--- NOTE | 2025-03-22 09:41 | PCN2_ITS ---
Brief Operative Note Date of procedure: 03/22/25 Pre-op diagnosis: 1.7cm Right mid/lowwe pole thyroid lobe Post-op diagnosis: same Procedure: INDICATION: 1.7cm Right mid/lowwe pole thyroid lobe ; FNA performed to assess for malignancy DESCRIPTION OF PROCEDURE: The indications for FNA (to assess for malignancy) were reviewed with the patient in detail. Potential complications (e.g., bleeding, infection, damage to local structures, absence of clear diagnosis aft er FNA) were reviewed. Alternatives to FNA including conservative observation or surgery were described. The patient understood and agreed to proceed. This was documented by the signing of the written informed consent form. A time-out was performed to confirm the patient's identity and the site of planned FNA. The nodule of interest was identified using ultrasound (14 MHz linear array probe). The site of FNA was then draped in the usual fashion and carefully cleaned and prepared using alcohol swabs. The skin at the previously-identified site of needle insertion was iced and sprayed with numbing spray. Under ultrasound guidance, 4 passes were performed using a 1.5-inch, 22-gauge needle, and sample was obtained via capillary action. The needle tip was clearly visualized to be within the nodule at the time of sampling for 4 of 4 passes The patient tolerated the procedure well. There were no immediate complications. A small adhesive bandage was applied, and the patient was advised to take acetaminophen (rather than NSAIDs) for any discomfort and to report any signs of inflammation/infection or marked swelling. IMPRESSION: Technically successful ultrasound-guided fine needle aspiration of 1.7cm Right mid/lowwe pole thyroid lobe . PLAN: The patient was advised that I will provide follow-up regarding the cytology result and any subsequent plans. Joyce Mathew MD Endocrinology Attending Surgeon: Joyce Mathew Condition: stable Disposition: same day
== END 2025-03-22 08:40 | disposition home or self-care (01) ==
LOC: HO.US 08:39
PROVIDERS: PCP Nurse Practitioner Family; Visit Provider Student in an Organized Health Care Education/Training Program
DX: E04.1 Nontoxic single thyroid nodule (principal)
CPT/HCPCS: 10005; 88173; 88305

== ENCOUNTER → 2025-03-22 08:39 | Outpatient (BNV) | payer OTHER, SELFPAY | PROVIDERS: PCP Nurse Practitioner Family; Visit Provider Student in an Organized Health Care Education/Training Program | DX: E04.1 Nontoxic single thyroid nodule (principal) | CPT/HCPCS: 10005 ==